=== PATIENT | female | born 1975 | race Caucasian/White ===

== ENCOUNTER 2021-09-05 13:13 | Emergency (ER) | payer BC, SELFPAY ==
[2021-09-05 13:21] VITALS: BP 132/74; PULSE 94; RESP 16; TEMP 37.2; O2SAT 100
--- NOTE | 2021-09-05 13:51 | ED.BACK ---
HPI - Back Pain/Injury General Chief Complaint: Back Pain/Injury Stated Complaint: back pain Time Seen by Provider: 09/05/21 13:52 Source: patient Mode of arrival: ambulatory Limitations: no limitations History of Present Illness HPI Narrative: Mildred Arshad is a 46 yo female with a PMH hypothyroid who [facility] with complaints of right-sided lower back pain. Denies any difficulty with urination or bowel movement but does have difficulty sitting down and has pain on movement too far forward or side to side Related Data Home Medications Medication Instructions Recorded Confirmed acetaminophen [Tylenol 8 Hour] 650 mg PO Q8H PRN 09/05/21 09/05/21 levothyroxine 125 mcg PO DAILY 09/05/21 09/05/21 Allergies Allergy/AdvReac Type Severity Reaction Status Date / Time Sulfa (Sulfonamide Allergy Unknown Rash Verified 09/05/21 13:33 Antibiotics) Review of Systems Review of Systems: CONSTITUTIONAL: Denies fever, chills, sweats. EYES: Denies visual changes, redness, discharge. ENT: Denies rhinorrhea, congestion, sore throat, otalgia. CARDIOVASCULAR: Denies chest pain, palpitations, edema. RESPIRATORY: Denies dyspnea, wheezing, cough GASTROINTESTINAL: Denies abdominal pain, nausea, vomiting, diarrhea. GENITOURINARY: Denies dysuria, hematuria, abnormal discharge SKIN: Denies rash or itching. NEUROLOGIC: Denies numbness, or focal weakness. PSYCHIATRIC: Denies anxiety or depression. Recent lower back pain PMFSH Past Medical History Medical History Back pain Hypothyroid Social History Social History (Updated 09/05/21 @ 14:01 by Joycelyn Camejo CNP) Smoking packs per day: 1.0 Smoking cigarettes per day: 20.0 Smoking status: Current every day smoker Alcohol intake: former Comments At time of signature, I agree with nursing past medical, surgical, social and family history. There is no relevant family history pertinent to the presenting complaint. Exam Narrative: GENERAL: This is a well-nourished, well-developed patient, in mmoderate distress. HEAD: normocephalic, atraumatic. EYES: Sclera clear/white. Vision is grossly intact. EARS: External ears normal,. Hearing grossly intact. NOSE: External nose normal without nasal discharge, THROAT: Mucous membranes moist, NECK: Neck supple, CARDIOVASCULAR: Regular rate and rhythm without murmurs, gallops, or rubs. RESPIRATORY: Clear to auscultation. Breath sounds equal bilaterally. No wheezes, GASTROINTESTINAL: Abdomen soft, SKIN: warm, intact NEURO: awake, alert, and oriented to person, place and time. There were no obvious focal neurologic abnormalities. Steady gait but walks gingerly with the right foot and is unable to bend forward more than 25 degrees EXTREMITIES: range of motion, limited ability to bend forward. BACK: Nontender , holds back rigidly y Course Course Emergency Course: Patient comes with back pain states that she gets chiropractor that is not currently available also states she has never tried muscle relaxants or steroids Patient given Toradol 60 mg IM here Patient started on Naprosyn and baclofen Follow-up with primary care doctor Vital Signs Vital signs: Vital Signs Temperature 98.9 F 09/05/21 13:21 Pulse Rate 94 09/05/21 13:21 Respiratory Rate 16 09/05/21 13:21 Blood Pressure 132/74 09/05/21 13:21 Pulse Oximetry 100 09/05/21 13:21 Temperature 98.9 F 09/05/21 13:21 Pulse Rate 94 09/05/21 13:21 Respiratory Rate 16 09/05/21 13:21 Blood Pressure 132/74 09/05/21 13:21 Pulse Oximetry 100 09/05/21 13:21 MDM - Back Pain/Injury Differential Diagnosis Differential diagnosis: Likely lumbar radiculopathy, sciatica, strain of lumbar region and other Critical Care Time Critical Care Time Critical Care Time: No Discharge Plan Discharge Clinical Impression: Lumbar back pain Patient Disposition: Home, Self-Care Conditi
[2021-09-05] MEDS: KETOROLAC (*BKC) 60 MG/2 ML VIAL IM (14:00)
== END 2021-09-05 14:20 | disposition home or self-care (01) ==
PROVIDERS: Emergency Provider Nurse Practitioner; PCP Family Medicine
DX: M54.50 Low back pain, unspecified (principal); F17.210 Nicotine dependence, cigarettes, uncomplicated; E03.9 Hypothyroidism, unspecified
CPT/HCPCS: 96372; 99213; G0463; J1885

== ENCOUNTER 2022-03-09 09:04 | Outpatient (CLI) | payer BC, SELFPAY ==
[2022-03-09 13:10] LABS: Free T4 Free Thyroxine 1.63 ng/mL (0.78-2.19)
[2022-03-09 13:24] LABS: Thyroid Stimulating Hormone 0.248 uIU/mL (0.465-4.680)
[2022-03-12 06:17] LABS: FSH 24.1 mIU/mL (***); LH 33.1 mIU/mL (***); Prolactin 10.1 ng/mL (***)
[2022-03-16 01:43] LABS: Estradiol, Ultrasensitive 183 pg/mL
== END 2022-03-09 09:05 | disposition home or self-care (01) ==
LOC: ANHWCLAB 09:07
PROVIDERS: PCP Family Medicine; Visit Provider Internal Medicine Endocrinology, Diabetes & Metabolism
DX: E03.9 Hypothyroidism, unspecified (principal); R79.89 Other specified abnormal findings of blood chemistry
CPT/HCPCS: 36415; 82670; 83001; 83002; 84146; 84439; 84443

== ENCOUNTER 2023-10-18 08:33 | Outpatient (CLI) | payer BC, SELFPAY ==
--- NOTE | 2023-10-18 08:44 | ECG_ITS ---
Measurements Intervals [place] Rate: 79 P: 74 DE: 134 QRS: 66 QRSD: 82 T: 127 QT: 392 QTc: 451 Interpretive Statements SINUS RHYTHM INCOMPLETE RIGHT BUNDLE BRANCH BLOCK BASELINE ARTIFACT- I, II, III, AVR, AVL, AVF, V1-V6 BORDERLINE ECG NO PREVIOUS ECG AVAILABLE FOR COMPARISON Electronically Signed On 10-18-2023 10:27:49 INDUSTRIAL ENGINEERING ANALYST by Ranjit Solorzano D.O.
== END 2023-10-18 08:34 | disposition home or self-care (01) ==
LOC: ANHSURGERY 08:38
PROVIDERS: PCP Family Medicine; Visit Provider Obstetrics & Gynecology
DX: Z01.818 Encounter for other preprocedural examination (principal); I45.10 Unspecified right bundle-branch block; R93.1 Abnormal findings on diagnostic imaging of heart and coronary circulation; Z87.891 Personal history of nicotine dependence
CPT/HCPCS: 93005

== ENCOUNTER 2023-10-25 03:36 | Day surgery (SDC) | payer BC, SELFPAY ==
[2023-10-12 12:30] VITALS: BMI 17.9
--- NOTE | 2023-10-12 12:34 | PC.NURSE ---
Report to the Outpatient Waiting Room, entrance under the green pavilion located off [facility], at time 6:30 on date 10/25/23. Planned Procedure Time: 8:30. Time changes happen often and if your time is changed the preop area will call you the afternoon before. - You and your visitor will be asked to self-screen and do not enter if you have any COVID symptoms. - A mask is optional within the hospital at this time. Patients may have clear liquids (water, carbonated beverages, clear teas, apple juice) until 3 hours prior to surgery with a maximum of 20 ounces. - No food from midnight until time of surgery Take the following medications with a SIP of water the morning of surgery: SYNTHROID DO NOT STOP ANY OF YOUR OTHER PRESCRIPTION MEDICATIONS PRIOR TO SURGERY ?EXCEPT THE FOLLOWING Medications to discontinue per physician: N/A Date to take last dose: N/A Please no make-up, nail equatorial guinean, hairspray, perfume, deodorant, or body powder the day of surgery. No jewelry (including any body piercings) or valuables the day of surgery, leave them at home. Please take a shower or bath the night before, or the morning of, surgery with an antibacterial soap. Wear comfortable, loose fitting clothing. - Jewelry must be removed prior to entering the operating room. Rings and piercings that are not removed may be cut off. - The hospital will not accept responsibility for valuables. - Please leave all valuables, including medications, at home the day of surgery. If you are going home after surgery, a licensed medical delivery driver must drive you home. - NO public transportation without another adult if you receive anesthesia. - We recommend that an adult stay with you for 24 hours following discharge. - We also recommend that you do not drive, make important decision, drink alcoholic beverages, or take any drugs that were not prescribed by your health care provider for at least 24 hours after your discharge time. Follow any additional instructions given to you from your surgeon. If you or anyone in your household have experienced Covid symptoms in the past week, please notify your surgeon or the nurse liaison at the phone number below for possible testing. Telephone instructions given to PT - ASHTYN PERKINS and asked if any additional questions and then verbalized understanding. Patient advised to call surgeon office or pre surgery nurse liaison [phone] if any additional questions.
[2023-10-25] VITALS (8 sets, daily range): BP systolic 97–120; BP diastolic 55–76; PULSE 55–66; RESP 13–18; TEMP 35.7–37.2; O2SAT 91–100
[2023-10-25] MEDS: ACETAMINOPHEN 500 MG TABLET 1000 MG PO (06:43)
[2023-10-25] MEDS: LACTATED RINGERS 1,000 ML 30 ML IV CONT ×2 (07:15→10:31)
--- NOTE | 2023-10-25 07:20 | WPDHPUPDATE1 ---
History and Physical Update Update Date/Time: 10/25/23 07:20 History and Physical has been reviewed, including an updated exam of the patient. There are NO changes in the patient's condition. Risks, benefits, and alternatives have been discussed and questions answered. Patient agrees to proceed with procedure.
[2023-10-25] MEDS: KETOROLAC 15 MG/ML VIAL (*BKC) IV PUSH (07:52)
--- NOTE | 2023-10-25 08:11 | WPDANESEPPF ---
Anes - Initial Pre Proc Eval Procedure: Operation Date: 10/25/23 08:30 Proposed Procedures p Hysteroscopy with Tatyana Endometrial Ablation - Hilario Veras MD s Laparoscopic Bilateral Salpingectomy - Hilario Veras MD Date/Time: 10/25/23 08:11 Surgeon: Hilario Veras MD Pre Op Diagnosis: Menorrhagia, Female Sterilization Patient Data Age: 48 Gender: F Height: 1.65 m Weight: 49.8 kg Last Vital Signs Temp 99 F 10/25/23 07:28 Pulse 65 10/25/23 07:28 Resp 16 10/25/23 07:28 BP 97/59 L 10/25/23 07:28 Pulse Ox 95 10/25/23 07:28 O2 Del Method Room Air 10/25/23 07:28 Allergies Allergy/AdvReac Type Severity Reaction Status Date / Time Sulfa (Sulfonamide Allergy Unknown Rash Verified 10/25/23 06:41 Antibiotics) latex Allergy Blister Verified 10/25/23 06:41 Home Medications Medication Instructions Recorded Confirmed Type levothyroxine 125 mcg tablet 125 mcg PO DAILY #90 tabs 01/17/23 10/12/23 Rx Patient hx anesthesia problems: none Family hx anesthesia problems: none Results Review: All pre-operative results and documents have been reviewed as part of the pre-operative evaluation. [facility] Past Medical History Medical History Back pain Hypothyroid Social History Social History Smoking packs per day: 1 Smoking cigarettes per day: 20.0 Years smoked: 30 Smoking pack-years: 30.00 Smoking status: Current every day smoker Tobacco type: cigarettes Second hand tobacco smoke exposure: Yes Alcohol intake: never Substance use: current Substance use type: marijuana Lack of Transportation: No Lack of Food: Never True Current Housing: I Have Housing Concerned About Future Housing: No Difficulty Paying Gas/Electric Bills: No Difficulty Paying for Meds: No Currently Unemployed: No Difficulty w/ Childcare or Family Care: No Living arrangements: with family Occupation/Education: unemployed Gender identity (if verbalized by the patient): Female Sexual Orientation (if Verbalized by the Patient): Straight or Heterosexual Spiritual care concerns: No Anes - Eval Final PreProcedure Day of Procedure 10/25/23 08:11 Patient weight: normal Heart: regular rate and rhythm Lungs: clear to auscultation Airway: Mallampati scale class II Neurological: alert and oriented Last oral intake: >/= 8 hours ASA classification: II Emergent: no Anesthetic plan: proceed Anesthesia type and monitoring: general ETT and standard monitoring Results Review: All pre-operative results and documents have been reviewed as part of the pre-operative evaluation. Informed Consent: The patient's anesthetic plan and its attendant risks and benefits were discussed with the patient/family/POA. Questions were solicited and answers provided to the satisfaction of the patient/family/POA.
--- NOTE | 2023-10-25 09:35 | P.OP_ITS ---
Procedure Note - Detailed Date of Procedure 10/25/23 Pre-op Diagnosis Menorrhagia, Female Sterilization Post-op Diagnosis Same Procedure Performed Laparoscopic bilateral salpingectomy with endometrial ablation and hysteroscopy. Surgeon Hilario Veras MD Anesthesia General Indications Menorrhagia, female sterilization Findings normal appearing endometrium, normal vulva, vagina, cervix. Normal pelvic anatomy with some omental adhesions to the anterior abdominal wall. Description of Procedure Patient was taken the operating room. She has prepped draped in the dorsal lithotomy position after induction of general anesthesia. A 5 mm abdominal incision was made in left upper quadrant of the abdomen with scalpel. A 5 mm trocars inserted the intra-abdominal cavity under direct visualization of the scope. Pneumoperitoneum was achieved. A 5 mm periumbilical incision was made using a scalpel on the abdominal scan. A 5 mm trocar was inserted the intra- abdominal cavity under visualization of the scope. A 5 mm incision made left lower quadrant of the abdomen. A 5 mm trocar was inserted the intra-abdominal cavity and direct visualization of the scope. The bilateral fallopian tubes were removed. The paratubal tissue in the area of the uterus was grasped with the LigaSure cautery and transected after being cauterized. The paratubal tissue from the ovary to the uterine cornu was cauterized and transected with LigaSure cautery. This was all done in a bilateral fashion. The tube was transected at the area of the uterine cornua and the tubes was removed through the 5 mm trocar site. The pneumoperitoneum was reduced. The trocars were removed. The skin was closed with subcuticular 4 Monocryl and covered with Dermabond. Our attention was then turned to the endometrial ablation portion of the procedure. A speculum was placed in the vagina. The cervix was grasped with a tenaculum. The cervix was dilated to approximately 8 mm with Kruse dilators. The hysteroscope was inserted. And the below findings were noted. All of the intrauterine surfaces were curettaged with a medium-size curette and the specimens were collected. Measurements of the cervix were taken using the uterine sound and the hysteroscope. The intrauterine cavity measurements were entered into the handpiece. The device was inserted into the intrauterine cavity and the array was expanded. The balloon cuff was inflated. When an adequate seal was formed the safety and energy cycles were initiated and completed. The array was collapsed, the balloon was deflated. The insert was withdrawn. The hysteroscope was reinserted and a well desiccated intrauterine cavity was observed. The patient was taken recovery room stable condition. Sponge lap and needle counts were correct x2. She tolerated the procedure well. Drains No Packing No Pathology None sent Complications No immediate complications Condition Stable Disposition PACU
[2023-10-25] MEDS: ONDANSETRON INJ 4 MG/2 ML VIAL IV PUSH (10:29)
== END 2023-10-25 11:15 | disposition home or self-care (01) ==
PROVIDERS: PCP Family Medicine; Visit Provider Obstetrics & Gynecology
PROC: 0U5B8ZZ Destruction of Endometrium, Via Natural or Artificial Opening Endoscopic (ICD-10-PCS; CPT 58563; principal; 2023-10-25 08:30)
PROC: (CPT 49320; 2023-10-25 08:30)
DX: N92.0 Excessive and frequent menstruation with regular cycle (principal); Z30.2 Encounter for sterilization; E03.9 Hypothyroidism, unspecified; F17.210 Nicotine dependence, cigarettes, uncomplicated; F12.90 Cannabis use, unspecified, uncomplicated
CPT/HCPCS: 58661; 58563; 88302; 88305; 93005; A9270; J1100; J1170; J1885; J2250; J2405; J2704; J3010; J7120

== ENCOUNTER 2024-09-10 11:40 | Emergency (ER) | payer BC, SELFPAY ==
--- NOTE | ~2024-09-10 | XR_ITS ---
EXAMINATION: XR chest 2V DATE: 09/10/2024 12:09 INDICATION: Cough. TECHNIQUE: Frontal and lateral views of the chest were obtained. COMPARISON: None. FINDINGS: There is mild scarring at right lung apex. There is no pneumonia, pleural effusion, or pneu mothorax. The heart size is normal. IMPRESSION: 1. Mild scarring at right lung apex. Reviewed, dictated and finalized at location A. ING AIDE TECHNICIAN
--- NOTE | 2024-09-10 11:47 | ED_ITS ---
HPI - URI/Sore Throat General Chief Complaint: Upper Respiratory Infection Stated Complaint: walking pneumonia exp, PATEL,Cough,Fever Time Seen by Provider: 09/10/24 11:54 Source: patient, RN notes reviewed and old records reviewed Mode of arrival: ambulatory Limitations: no limitations History of Present Illness HPI Narrative: 49-year-old female presents to the [facility] with concerns for pneumonia. States she has had exposure to pneumonia. Reports headaches and bodyaches Symptoms for about a week. Onset (ago): week(s) (1) Related Data Allergies Allergy/AdvReac Type Severity Reaction Status Date / Time latex Allergy Intermediate Blister Verified 09/10/24 11:58 Sulfa (Sulfonamide Allergy Intermediate Rash Verified 09/10/24 11:58 Antibiotics) Review of Systems Review of Systems: All systems reviewed & are unremarkable except as noted in HPI and below Constitutional: Constitutional: Reports as per HPI and Reports fever(s) (Subjective) ENT: Reports system reviewed and no additional complaints, except as documented Cardiovascular: Cardiovascular: Reports no additional cardiovascular complaints, Denies chest pain and Denies dyspnea Respiratory: Respiratory: Reports as per HPI, Denies chest congestion, Reports cough and Denies dyspnea Gastrointestinal: Gastrointestinal: Reports no additional gastrointestinal complaints, Denies abdominal pain, Denies nausea and Denies vomiting Musculoskeletal: Musculoskeletal: Reports no additional musculoskeletal complaints Integumentary/Breasts: Skin/Breast: Reports system reviewed and no additional complaints, except as docu PMFSH Past Medical History Medical History Back pain Gonadotroph adenoma Hypothyroid Nicotine dependence, cigarettes, uncomplicated Pathologic high serum prolactin Surgical History Surgical History History of endometrial ablation 10/2023 History of tubal ligation 10/2023 Social History Social History Smoking packs per day: 1 Smoking cigarettes per day: 20.0 Years smoked: 30 Smoking pack-years: 30.00 Smoking status: Current every day smoker Tobacco type: cigarettes Second hand tobacco smoke exposure: Yes Alcohol intake: never Substance use: current Substance use type: marijuana Lack of Transportation: No Lack of Food: Never True Current Housing: I Have Housing Concerned About Future Housing: No Difficulty Paying Gas/Electric Bills: No Difficulty Paying for Meds: No Currently Unemployed: No Difficulty w/ Childcare or Family Care: No Living arrangements: with family Occupation/Education: unemployed Gender identity (if verbalized by the patient): Female Sexual Orientation (if Verbalized by the Patient): Straight or Heterosexual Spiritual care concerns: No Comments At the time of my signature, I reviewed and agree with the nursing past medical, surgical, social, and family history. There is no relevant family history pertinent to the patient complaint. Exam Const: General: cooperative, healthy appearing, comfortable, no acute distress, well developed, alert and well nourished Nutritional Appearance: well nourished Orientation/consciousness: patient oriented x3 Limitations: no limitations HENMT: Head: normal to inspection Ears: hearing grossly normal bilaterally and external ears normal Face/Nose/Sinus: Normal external nose present, normal facial exam and face symmetric Face and sinus: normal facial exam and face symmetric Mouth: Yes Normal oral and palatal mucosa present, Yes lip normal and Yes tongue normal Throat: posterior oropharynx normal, uvula midline, postnasal drainage and no uvular edema Eyes: General: appearance normal, both eyes and all related structures Alignment and Position: alignment normal Periorbital: periorbital findings normal Neck: Neck: normal visual inspection, full ROM, no lymphadenopathy and no meningeal signs Chest: Chest palpation & inspection: normal inspection of the chest Resp: Effort & Inspection: normal respiratory effort and able to speak in complete sentences Auscultation: clear to auscultation bilaterally, no crackles, no rales, no rhonchi and no wheezes Cardio: Rate: regular rate Skin: General skin exam: normal color and no rashes or lesions noted Lesions: no lesions Rashes: no rashes Wounds: no wounds Neuro: General: patient oriented x3, gait normal, tone normal, moves all extremities and no meningeal signs Cognition (Neuro): normal cognition Speech: normal speech Gait exam (Neuro): Normal gait present Extrem: General: normal to inspection, full ROM, capillary refill normal and normal gait Psych: Appearance: grossly normal and well kempt Mental Status: mental status grossly normal Speech and movement: Normal speech and movement present and Clear speech present Affect: normal affect Attitude: cooperative Course Course Level of Care: Express Care Visit Vital Signs Vital signs: Vital Signs Temperature 99.3 F 09/10/24 11:54 Pulse Rate 77 09/10/24 11:54 Respiratory Rate 14 09/10/24 11:54 Blood Pressure 126/76 09/10/24 11:54 Pulse Oximetry 97 09/10/24 11:54 Oxygen Delivery Room Air 09/10/24 11:54 Temperature 99.3 F 09/10/24 11:54 Pulse Rate 77 09/10/24 11:54 Respiratory Rate 14 09/10/24 11:54 Blood Pressure 126/76 09/10/24 11:54 Pulse Oximetry 97 09/10/24 11:54 Oxygen Delivery Room Air 09/10/24 11:54 Reviewed MDM - URI/Sore Throat MDM Narrative Medical decision making narrative: Patient sitting exam. Toxic patient presents with, congestion Patient is nontoxic vitals are stable. Patient's chest x-ray negative Patient appropriate for outpatient treatment and follow-up Discharge instructions reviewed with patient, as well as provided in writing per nursing staff. The instructions also include specific and strict return/GO TO THE ER as well as f/u information. All questions have been answered, and the patient deny any further questions with discharge and discharge plan. Some parts of this dictation were generated by voice recognition software and may contain typographical and/or grammatical inaccuracies. Differential Diagnosis Differential diagnosis: Likely upper respiratory infection, otitis media, sinusitis, viral infection and bronchitis Imaging Data Radiologist's impression: EXAMINATION: XR chest 2V DATE: 09/10/2024 12:09 INDICATION: Cough. TECHNIQUE: Frontal and lateral views of the chest were obtained. COMPARISON: None. FINDINGS: There is mild scarring at right lung apex. There is no pneumonia, pleural effusion, or pneumothorax. The heart size is normal. IMPRESSION: 1. Mild scarring at right lung apex. Critical Care Time Critical Care Time Critical Care Time: No Discharge Plan Discharge Clinical Impression: Acute bronchitis Patient Disposition: Home, Self-Care Condition: Stable Instructions: Antibiotic Form, Acute Bronchitis (ED) Additional Instructions: Your chest x-ray did not show signs of pneumonia. Your symptoms are likely due to a viral illness, which is not treated with antibiotics. Typically viral infections last 7-10 days, can linger for couple of weeks. It is very important to treat your symptoms. Plenty of water, Gatorade, Pedialyte, ice pops or Jell-O. -Alternate Tylenol and Motrin per package directions for fever or pain. You can alternate every 4 hours -Antihistamine medication such as Benadryl at night and Zyrtec/Claritin/Fernanda during the day can help improve symptoms. -doing daily nasal irrigations can help relieve pressure your sinuses. Things like a Neti pot -Use Flonase twice a day for 5 days then daily to help reduce the inflammation and dry up your sinuses. -You can also use Mucinex. Be sure to drink plenty of water with this medication at least 8 ounces with every dose and it is important to drink 8 to 10 glasses of water per day. Water is a natural decongestant -Eat and drink things that are easy to swallow, like tea or soup, or popsicles. -Oral rinses such as: Salt water gargles and/or may use topical anesthetic (eg. Chloraseptic spray) or lozenges to relieve dryness or throat pain). -Frequent hand washing or hand accounting administrative assistant is one of the best ways to prevent spread of infection. -Using a vaporizer or humidifier at night will also help thin secretions and help with coughing up phlegm. -Follow up with primary care provider in 7-10 days if condition is not improving - For new or worsening symptoms go directly to the nearest ER Patient Language: Emirati Prescriptions: New prednisone 20 mg tablet See Rx Instructions .Route .COMPLEX Qty: 9 0RF Rx Instructions: Take 40 mg daily for 3 days, 20 mg daily for 3 days albuterol sulfate 90 mcg/actuation HFA aerosol inhaler 2 puff inhalation QID PRN (Reason: shortness of breath or wheezing) Qty: 6.7 0RF (DME) Aerochamber MV Spacer See Rx Instructions .Route Qty: 1 0RF Rx Instructions: As directed No Action levothyroxine 112 mcg tablet 112 mcg PO DAILY Qty: 90 1RF Follow-up/Referrals: Fernando Choi MD [Primary Care Provider] - 2 Weeks (express care follow up ) Stand Alone Forms: Work/School Release IP Time of Disposition: 12:25
[2024-09-10 11:54] VITALS: BP 126/76; PULSE 77; RESP 14; TEMP 37.4; O2SAT 97
== END 2024-09-10 12:31 | disposition home or self-care (01) ==
PROVIDERS: Emergency Provider Nurse Practitioner; PCP Family Medicine
DX: J20.9 Acute bronchitis, unspecified (principal); F17.210 Nicotine dependence, cigarettes, uncomplicated; E03.9 Hypothyroidism, unspecified
CPT/HCPCS: 71046; 99213; G0463

== ENCOUNTER 2024-10-24 00:41 | Day surgery (SDC) | payer BC, SELFPAY ==
[2024-10-01 14:17] VITALS: BMI 17.4
[2024-10-24 06:25] VITALS: BP 98/83; PULSE 96; RESP 18; TEMP 36.3; O2SAT 98
[2024-10-24] MEDS: LACTATED RINGERS 1,000 ML 150 ML IV CONT (06:36)
[2024-10-24 06:41] LABS: BEDSIDEPREGUCG Negative (Negative)
--- NOTE | 2024-10-24 07:12 | PM.IMHP ---
H&P: HPI History of Present Illness Date/Time: 10/24/24 07:12 Chief Complaint: History of colon polyps Narrative: The patient has a history of colonic polyps, the last colonoscopy was about 10 years ago. She is asymptomatic and has no family history of colon cancer. Review of Systems Review of Systems: All systems reviewed & are unremarkable except as noted in HPI and below PMFSH Past Medical History Medical History Back pain Gonadotroph adenoma Hypothyroid Nicotine dependence, cigarettes, uncomplicated Pathologic high serum prolactin Surgical History Surgical History History of endometrial ablation 10/2023 History of tubal ligation 10/2023 Social History Social History Smoking packs per day: 1 Smoking cigarettes per day: 20.0 Years smoked: 30 Smoking pack-years: 30.00 Smoking status: Current every day smoker Tobacco type: cigarettes Second hand tobacco smoke exposure: Yes Alcohol intake: never Substance use: current Substance use type: marijuana Lack of Transportation: No Lack of Food: Never True Current Housing: I Have Housing Concerned About Future Housing: No Difficulty Paying Gas/Electric Bills: No Difficulty Paying for Meds: No Currently Unemployed: No Difficulty w/ Childcare or Family Care: No Living arrangements: with family Occupation/Education: unemployed Gender identity (if verbalized by the patient): Female Sexual Orientation (if Verbalized by the Patient): Straight or Heterosexual Spiritual care concerns: No Meds Home Medications and Allergies Home Medications ?Medication ?Instructions ?Recorded ?Confirmed ?Type levothyroxine 112 mcg tablet 112 mcg PO DAILY #90 tabs 08/15/24 10/24/24 Rx inhalational spacing device #1 ea 09/10/24 Rx (Aerochamber MV spacer) Allergies Allergy/AdvReac Type Severity Reaction Status Date / Time latex Allergy Intermediate Blister Verified 10/24/24 06:21 Sulfa (Sulfonamide Allergy Intermediate Swelling Verified 10/24/24 06:21 Antibiotics) Vital Signs Vital Signs - 24 hr 10/24/24 06:25 Temperature 97.4 F L Pulse Rate 96 Respiratory Rate 18 Blood Pressure 98/83 L Pulse Oximetry 98 Oxygen Delivery Room Air Exam Const: General: cooperative and healthy appearing Resp: Effort & Inspection: normal respiratory effort and able to speak in complete sentences Auscultation: clear to auscultation bilaterally Cardio: Rate: regular rate Rhythm: regular rhythm GI: Inspection: normal to inspection GI Palp: No No hepatosplenomegaly present Auscultation: normal bowel sounds Rectal Exam: deferred Skin: General skin exam: normal color Psych: Appearance: grossly normal Mental Status: mental status grossly normal Assessment and Plan Assessment and plan (1) History of colonic polyps: Code(s): Z86.0100 - Personal history of colon polyps, unspecified Status: Acute Assessment and Plan: The patient is deemed a good candidate for the procedure. Consent signed. Will proceed.
--- NOTE | 2024-10-24 07:24 | P.PNAN_ITS ---
Anes - Initial Pre Proc Eval Procedure: Operation Date: 10/24/24 07:30 Proposed Procedures p Screening Colonoscopy - Avinash Quintero MD Date/Time: 10/24/24 07:24 Surgeon: Avinash Quintero MD Pre Op Diagnosis: Screening neoplasm of colon Patient Data Age: 49 Gender: F Height: 1.63 m Weight: 47.2 kg Last Vital Signs Temp 36.3 C L 10/24/24 06:25 Pulse 96 10/24/24 06:25 Resp 18 10/24/24 06:25 BP 98/83 L 10/24/24 06:25 Pulse Ox 98 10/24/24 06:25 O2 Del Method Room Air 10/24/24 06:25 Allergies Allergy/AdvReac Type Severity Reaction Status Date / Time latex Allergy Intermediate Blister Verified 10/24/24 06:21 Sulfa (Sulfonamide Allergy Intermediate Swelling Verified 10/24/24 06:21 Antibiotics) Home Medications ?Medication ?Instructions ?Recorded ?Confirmed ?Type levothyroxine 112 mcg tablet 112 mcg PO DAILY #90 tabs 08/15/24 10/24/24 Rx inhalational spacing device #1 ea 09/10/24 Rx (Aerochamber MV spacer) Laboratory Tests 10/24/24 06:39 POC Urine HCG, Qual Negative (Negative) Patient hx anesthesia problems: none Family hx anesthesia problems: none Results Review: All pre-operative results and documents have been reviewed as part of the pre- operative evaluation. [facility] Past Medical History Medical History Nicotine dependence, cigarettes, uncomplicated Pathologic high serum prolactin Gonadotroph adenoma Back pain Hypothyroid Surgical History Surgical History History of tubal ligation 10/2023 History of endometrial ablation 10/2023 Social History Social History Smoking packs per day: 1 Smoking cigarettes per day: 20.0 Years smoked: 30 Smoking pack-years: 30.00 Smoking status: Current every day smoker Tobacco type: cigarettes Second hand tobacco smoke exposure: Yes Alcohol intake: never Substance use: current Substance use type: marijuana Lack of Transportation: No Lack of Food: Never True Current Housing: I Have Housing Concerned About Future Housing: No Difficulty Paying Gas/Electric Bills: No Difficulty Paying for Meds: No Currently Unemployed: No Difficulty w/ Childcare or Family Care: No Living arrangements: with family Occupation/Education: unemployed Gender identity (if verbalized by the patient): Female Sexual Orientation (if Verbalized by the Patient): Straight or Heterosexual Spiritual care concerns: No Anes - Eval Final PreProcedure Day of Procedure 10/24/24 07:24 Patient weight: thin Heart: regular rate and rhythm Lungs: clear to auscultation Airway: Mallampati scale class 1 Neurological: alert and oriented Last oral intake: >/= 8 hours ASA classification: II Emergent: no Anesthetic plan: proceed Anesthesia type and monitoring: general GIVS and standard monitoring Results Review: All pre-operative results and documents have been reviewed as part of the pre- operative evaluation. Informed Consent: The patient's anesthetic plan and its attendant risks and benefits were discussed with the patient/family/POA. Questions were solicited and answers provided to the satisfaction of the patient/family/POA.
[2024-10-24 08:11] VITALS: BP 95/59; PULSE 55; RESP 20; O2SAT 100
[2024-10-24 08:21] VITALS: BP 96/68; PULSE 72; RESP 18; O2SAT 98
[2024-10-24 08:31] VITALS: BP 109/72; PULSE 66; RESP 18; O2SAT 98
== END 2024-10-24 09:04 | disposition home or self-care (01) ==
PROVIDERS: Anesthesiology; PCP Family Medicine; Visit Provider Internal Medicine Gastroenterology
PROC: 0DJD8ZZ Inspection of Lower Intestinal Tract, Via Natural or Artificial Opening Endoscopic (ICD-10-PCS; CPT 45378; principal; 2024-10-24 07:30)
DX: Z12.11 Encounter for screening for malignant neoplasm of colon (principal); D12.2 Benign neoplasm of ascending colon; D12.4 Benign neoplasm of descending colon; K63.5 Polyp of colon; K57.30 Diverticulosis of large intestine without perforation or abscess without bleeding; E03.9 Hypothyroidism, unspecified; F17.210 Nicotine dependence, cigarettes, uncomplicated; Z79.51 Long term (current) use of inhaled steroids; Z98.890 Other specified postprocedural states; Z98.891 History of uterine scar from previous surgery; Z98.51 Tubal ligation status; Z86.018 Personal history of other benign neoplasm
CPT/HCPCS: 45385; 88305; J2003; J2371; J2704; J7120

== ENCOUNTER 2025-03-18 10:40 | Emergency (ER) | payer BC, SELFPAY ==
--- NOTE | ~2025-03-18 | XR_ITS ---
XR abdomen/kub 1V 03/18/2025 11:12 INDICATION: Generalized abdominal pain TECHNIQUE: KUB COMPARISON: None FINDINGS: Bowel gas pattern is normal. There is no evidence of free air, mass, organomegaly, ascites or obstruction. No abnormal calculi are seen. The bones appear intact. There are pelvic phleboliths. IMPRESSION: 1: No acute abdominal abnormality identified. Reviewed, dictated and finalized at location A.
--- NOTE | 2025-03-18 10:42 | ED.ABDPAIN ---
HPI - Abdominal Pain General Chief Complaint: Urogenital-Female Stated Complaint: Abdominal Pain Time Seen by Provider: 03/18/25 10:41 Source: patient Mode of arrival: ambulatory Limitations: no limitations History of Present Illness HPI narrative: Mildred is a 50-year-old female patient presenting to the clinic today with complaints of abdominal pain x3 days. 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 Some severe abdominal pain in the lower abdomen on with some nausea and vomiting. Pain comes and goes. Pain is sharp in nature. Reports pain was 10 at 10 last night but currently is a 5/10. Denies any urinary symptoms, vaginal discharge, or blood in her stool. Thought initially she may be constipated so she took a couple doses of laxatives and stool softeners. Was able to pass stool a few times but is still having pain. Is now having pain in the upper abdomen is well. Feels bloated. States her temperature has increased to 99.4? F. History of tubal ligation, uterine ablation, pancreatitis, and cholecystectomy. Had colonoscopy be in October 2024 and had several polyps and diverticulosis. Denies any concern for STIs. Related Data Allergies Allergy/AdvReac Type Severity Reaction Status Date / Time latex Allergy Intermediate Blister Verified 03/18/25 10:42 Sulfa (Sulfonamide Allergy Intermediate Swelling Verified 03/18/25 10:42 Antibiotics) metronidazole AdvReac Intermediate Vomiting Verified 03/18/25 10:42 Review of Systems Review of Systems: Pertinent positives per HPI. Patient denies any fever, chills, rash, headache, visual changes, dizziness, cough, shortness of breath, chest pain, palpitations, diarrhea, or any urinary issues. [facility] Past Medical History Medical History Nicotine dependence, cigarettes, uncomplicated Pathologic high serum prolactin Gonadotroph adenoma Back pain Hypothyroid Surgical History Surgical History History of tubal ligation 10/2023 History of endometrial ablation 10/2023 Social History Social History Smoking packs per day: 1 Smoking cigarettes per day: 20.0 Years smoked: 30 Smoking pack-years: 30.00 Smoking status: Current every day smoker Tobacco type: cigarettes Second hand tobacco smoke exposure: Yes Alcohol intake: never Substance use: current Substance use type: marijuana Other substance usage details: Multiple times daily marijuana Lack of Transportation: No Lack of Food: Never True Current Housing: I Have Housing Concerned About Future Housing: No Difficulty Paying Gas/Electric Bills: No Difficulty Paying for Meds: No Currently Unemployed: No Difficulty w/ Childcare or Family Care: No Living arrangements: with family Occupation/Education: unemployed Gender identity (if verbalized by the patient): Female Sexual Orientation (if Verbalized by the Patient): Straight or Heterosexual Spiritual care concerns: No Comments At the time of my signature, I reviewed and agree with the nursing past medical, surgical, social, and family history. There is no relevant family history pertinent to the patient complaint. Exam Narrative: General: Well-developed, well nourished, in no apparent distress. Head: Normocephalic, atraumatic. Cardio: Regular rate and rhythm, s1 and s2 normal, no murmur appreciated. Resp: Clear to auscultation bilaterally, no rhonchi, rales, wheezing or rubs. Abdomen: Soft, pliable, bowel sounds present in all quadrants, generalized tender to palpation but worst in the right and left lower abdomen, + psoas in the RLQ, no organomegly, no CVAT tenderness. Course Course Emergency Course: Portions of this record may have been created with voice recognition software. Level of Care: Express Care Visit Vital Signs Vital signs: Vital Signs Temperature 37.4 C 03/18/25 10:50 Pulse Rate 95 03/18/25 10:50 Respiratory Rate 16 03/18/25 10:50 Blood Pressure 102/63 03/18/25 10:50 Pulse Oximetry 100 03/18/25 10:50 Oxygen Delivery Room Air 03/18/25 10:50 Temperature 37.4 C 03/18/25 10:50 Pulse Rate 95 03/18/25 10:50 Respiratory Rate 16 03/18/25 10:50 Blood Pressure 102/63 03/18/25 10:50 Pulse Oximetry 100 03/18/25 10:50 Oxygen Delivery Room Air 03/18/25 10:50 Vital signs reviewed Transfer Transfered to: [facility] Transportation: Other (Private car) Transfer rationale: Abdominal pain-rule out appy, pancreatitis, diverticulitis, ovarian cyst Accepting physician: Stanley Transfer comments: Via private car. MDM - Abdominal Pain MDM Narrative Medical decision making narrative: At the time of visit patient is resting comfortably on the exam table. Patient appears to be nontoxic. Labs: Urinalysis and bedside test was performed. Urinalysis shows 1+ protein and trace of intact blood. Bedside test was negative. Diagnostics: KUB x-ray shows no acute abnormality the abdomen Plan: Patient is having generalized abdominal pain-worsen they bilateral lower quadrants- history of diverticulosis and pancreatitis. Patient still has her appendix. Recommend transfer to the ER for further evaluation. Patient agrees to transfer. Patient would like to go to [facility] the emergency room. Report called to Debbie-physician's architectural administrative assistant [facility] emergency room and she accepts patient for transfer. Differential Diagnosis Differential diagnosis: Likely abdominal pain, acute appendicitis, calculus of kidney, constipation, diverticulitis, endometriosis, gastroenteritis, pancreatitis, small bowel obstruction and other (Ovarian cyst) Lab Data Labs: Lab Results 03/18/25 Range/Units 11:00 POC Urine Color Rosaura POC Urine Clarity Cloudy POC Urine pH 5.5 POC Ur Specif [place] 1.025 POC Urine Protein 1+ (Negative) POC Ur Glucose (UA) Negative (Negative) POC Urine Ketones Negative (Negative) POC Urine Blood Trace (Negative) POC Urine Nitrite Negative (Negative) POC Urine Bilirubin Negative (Negative) POC Urine Urobilinogen 0.2 POC U Leukocyte Esteras Negative (Negative) POC Urine HCG, Qual Negative (Negative) Imaging Data Radiologist's impression: ITS Impressions Abdomen X-Ray 03/18/25 11:21 IMPRESSION: 1: No acute abdominal abnormality identified. Discharge Plan Discharge Clinical Impression: Abdominal pain Qualifiers: Abdominal location: generalized Qualified Code(s): R10.84 - Generalized abdominal pain Patient Disposition: Acute Care Hospital Condition: Stable Patient Language: [place] Prescriptions: No Action levothyroxine 112 mcg tablet 112 mcg PO DAILY Qty: 90 1RF Follow-up/Referrals: Feranndo Choi MD [Primary Care Provider] - Time of Disposition: 11:55 Quality NIHSS Nursing Documentation ED NIHSS nursing documentation: reviewed/agree
[2025-03-18 10:50] VITALS: BP 102/63; PULSE 95; RESP 16; TEMP 37.4; O2SAT 100
[2025-03-18 11:17] LABS: BEDSIDEPREGUCG Negative (Negative); EDUAAPPEAR Cloudy; EDUABILI Negative (Negative); EDUABLOOD Trace (Negative); EDUACOLOR1 Amber; EDUAGLUCOSE Negative (Negative); EDUAKETONE Negative (Negative); EDUALEUKO Negative (Negative); EDUANITRATE Negative (Negative); EDUAPH 5.5; EDUAPROTEIN 1+ (Negative); EDUASPGRAVITY 1.025; EDUAUROBILI 0.2
== END 2025-03-18 11:55 | disposition short-term general hospital (02) ==
PROVIDERS: Emergency Provider Nurse Practitioner Family; PCP Family Medicine
DX: R10.84 Generalized abdominal pain (principal); F17.210 Nicotine dependence, cigarettes, uncomplicated; F12.90 Cannabis use, unspecified, uncomplicated; E03.9 Hypothyroidism, unspecified
CPT/HCPCS: 74018; 81003; 81025; 99213; G0463

== ENCOUNTER 2025-03-18 12:15 | Emergency (ER) | payer BC, SELFPAY ==
--- NOTE | ~2025-03-18 | CT_ITS ---
EXAMINATION: CT abdomen pelvis w con DATE: 03/18/2025 13:29 INDICATION: Bilateral lower quadrant abdominal pain. TECHNIQUE: Computed tomography (CT) of the abdomen and pelvis was performed with 100 mL Omnipaque-350 intravenous contrast. Automated exposure control and iterative reconstruction technique were employe d. The dose-length product was 182.60 mGy-cm. COMPARISON: None FINDINGS: Lung bases are clear. Visualized inferior heart is normal. No pericardial or pleural effusion. Cholec ystectomy clips at the gallbladder fossa. Liver, spleen, pancreas, bilateral adrenal glands and right kidney are normal. Small region of cortical scarring at the interpolar region of the left kidney. Bl adder is decompressed. Anteverted uterus and right adnexa is unremarkable. 2 cm left ovarian cyst/fol licle. Normal appendix. No bowel obstruction. There is fluid scattered throughout the colon consisten t with nonspecific diarrhea. No free intraperitoneal gas or fluid. No pathologically enlarged abdomin al or pelvic lymphadenopathy. Moderate spondylosis the lumbosacral junction. IMPRESSION: 1. Fluid throughout the colon consistent with nonspecific diarrhea. Correlate clinically for gastroen teritis. Reviewed, dictated and finalized at location A. IMPRESSION: 1. Fluid throughout the colon consistent with nonspecific diarrhea. Correlate c linically for gastroenteritis.
--- OUTSIDE RECORDS SUMMARY | 2025-03-18 12:19 | XMS_ITS | Clinical Summary ---
Author Organization [facility] Address [address] [place] [id number] Care Team Providers Care Job Forwarder Name Role Phone Fernando Choi MD Primary Care Provider [phone] Allergies Active Allergy Reactions Criticality Noted Date Comments Sulfa (Sulfonamide Antibiotics) Swelling,Rash Medium 0 03/27/2018 Medications levothyroxine (SYNTHROID, LEVOTHROID) 175 mcg tablet Active Active Problems Problem Noted Date Diagnosed Date Tobacco use 09/29/2019 Decreased exercise tolerance 09/29/2019 Chest discomfort 09/26/2019 Abnormal mammogram 03/30/2018 Mastodynia of right breast 03/30/2018 Surgical History Surgery Date Site/Laterality Comments GALLBLADDER SURGERY Medical History Medical History Date Comments Hypothyroidism Family History Medical History Relation Name Comments Atrial fibrillation Maternal Grandfather Lung cancer Maternal Grandmother COPD Mother Relation Name Status Comments Brother 1 Alive Brother 2 Alive Father Alive Maternal Grandfather Alive Maternal Grandmother Mother Alive Social History Tobacco Use Types Packs/Day Years Used Date Smoking Tobacco: Every Day Smokeless Tobacco: Never Tobacco Cessation:Ready to Q uit: No; Counseling Given: Yes Alcohol Use Standard Drinks/Week Comments Not Currently 0 (1 standard drink = 0.6 oz pur e alcohol) Personal Safety Answer Date Recorded Getting School Help Needed Not on file 12/10 Comments No Sex and Gender Information Value Date Recorded Sex Assigned at Not on file 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 Gender Identity Not on file Sexual Orientation Not on file Obstetrics History Last Filed Vital Signs Vital Sign Reading Time Taken Comments Blood Pressure 104/70 09/26/2019 3:08 PM ICE HOUSE SUPER[employer]OR Pulse 70 09/26/2019 3:08 PM [employer] HOUSE SUPERVISOR Temperature - - Respiratory Rate - - Oxygen Saturation 97% 09/26/2019 3:08 PM [employer] HOUSE SUPERVISOR Inhaled Oxygen Concentration - - Weight 53.2 kg (117 lb 4.8 oz) 09/26/2019 3:08 P M [employer] HOUSE SUPERVISOR Height 163.8 cm (5' 4.5) 09/26/2019 3:08 PM ICE HOUSE SUPERVISOR Body Mass Index 19.82 09/26/2019 3:08 PM ICE HOUSE SUPERVISOR Plan of Treatment Not on file Insurance ANTHEM ACCESS CHOICE ANTHEM ACCESS ANTHEM ACCESS CHOICE ANTHEM ACCESS Care Teams Job Forwarder Relationship Specialty Start Date End Date Fernando Choi MD [address] [place] [id number] PCP - General 10/06/17
--- OUTSIDE RECORDS SUMMARY | 2025-03-18 12:19 | XMS_ITS | Referral Summary ---
Author Organization [facility] Address [address] [place] [id number] Care Team Providers Care Relay Tester Helper Name Role Phone Fernando Choi MD Primary Care Provider [phone] Allergies Active Allergy Reactions Criticality Noted Date Comments Sulfa (Sulfonamide Antibiotics) Swelling,Rash Medium 0 03/27/2018 Medications levothyroxine (SYNTHROID, LEVOTHROID) 175 mcg tablet Active Active Problems Problem Noted Date Diagnosed Date Tobacco use 09/29/2019 Decreased exercise tolerance 09/29/2019 Chest discomfort 09/26/2019 Abnormal mammogram 03/30/2018 Mastodynia of right breast 03/30/2018 Social History Tobacco Use Types Packs/Day Years [...] on file 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 Gender Identity Not on file Sexual Orientation Not on file Last Filed Vital Signs Vital Sign Reading Time Taken Comments Blood Pressure 104/70 09/26/2019 3:08 PM DIRECTOR OF FINANCIAL AID Pulse 70 09/26/2019 3:08 PM DIRECTOR OF FINANCIAL AID Temperature - - Respiratory Rate - - Oxygen Saturation 97% 09/26/2019 3:08 PM DIRECTOR OF FINANCIAL AID Inhaled Oxygen Concentration - - Weight 53.2 kg (117 lb 4.8 oz) 09/26/2019 3:08 P M DIRECTOR OF FINANCIAL AID Height 163.8 cm (5' 4.5) 09/26/2019 3:08 PM DIRECTOR OF FINANCIAL AID Body Mass Index 19.82 09/26/2019 3:08 PM DIRECTOR OF FINANCIAL AID Plan of Treatment Not on file Insurance ANTHEM ACCESS CHOICE ANTHEM ACCESS ANTHEM ACCESS CHOICE ANTHEM ACCESS Care Teams Relay Tester Helper Relationship Specialty Start Date End Date Fernando Choi MD [address] [place] [id number] PCP - General 10/06/17
--- OUTSIDE RECORDS SUMMARY | 2025-03-18 12:19 | XMS_ITS | Data Portability ---
Author Organization [facility] Address [address] [place] [address] Care Team Providers Care Matrix Worker Name Role Phone MISAEL NEAL Primary Care Provider [phone] Assessment Encounter Date Assessment Date Assessment LastModified by Organization Details LastModified Time 01/17/2024 01/17/2024 Annual gynecological exam performed. Patient will come back in a year unless there are new symptoms. Not available 01/17/2024 10:36:30 Plan of Treatment Reminders Order Date Submit Date Provider Last Modified By Organization Details Last Modified Time Details Appointments None recorded. Lab urinalysis, dipstick 2024 025 [facility], [address], [address], [place], [address], 5 11:45:06 hsv-1 igg Ab, serum 2023 024 [facility] (Lab), [address], [place], [address], 4 08:37:39 hsv-2 igg Ab, serum 2023 024 [facility] (Lab), [address], [place], [address], 4 08:37:40 Referral None recorded. Procedures None recorded. Surgeries salpingecto my, laparoscopi c (SURG) 2022 024 [id number], [address], [place], [address], 3 13:17:36 hysteroscop y, with endometrial ablation (SURG) 2022 024 [facility], [address], [place], [address], 4 11:07:13 Imaging MAMMO, screening, bilateral 2023 024 [email or web address] [facility], [address], [facility] [address], [place], [address], 4 13:49:12 Medication Orders fluconazole 150 mg tablet 2024 025 [id number], [address] , [place], [place], [id number], 5 12:37:00 nystatin-tr iamcinolone 100,000 unit/gram-0 .1 % topical ointment 2024 025 [id number], [address] , [place], [place], [id number], 5 12:39:23 Patient TargetsNo targets recorded. Patient InstructionsNo instructions recorded. Reason for Referral None Reported. 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 -No evide nce of sacha michaeli maritza or janice schuster . -[facility] Michelle by Sandro Charles MD on 09/26 at 11:56 AM ----- ----- ----- ----- ----- ----- ----- ----- ----- ----- ----- ----- ----- ----- ----- ----- ----- ---- CLINI JUAN C INFOR MATIO N: n93.9 MICRO SCOPI C DESCR IPTIO N: A micro scopi c exami natio n was perfo rmed. GROSS DESCR IPTIO N: A. Endom etriu m. The speci men is label ed with the patie nt's name, ese reeves cs and EMB . Recei chandni in forma ana is a 3.0 x 3.0 x 0.5 cm aggre gate of soft, dark red tissu e. The entir e speci men is submi tted in 2 casse ttes. Gross ed by Henrik dickerson Not Available [facility] (Lab) [address] [place], [address], 09/26/2023 13:01:11 01/17/2001/17/2024 HERPE S SMPLE X VIRUS TYPE 1 SPECI FIC AB, IGG herpes simplex virus 1 IgG Positi ve negati ve abnormal Not Available [facility] (Lab) [address] [place], [address], 01/18/2024 08:37:39 01/17/2001/17/2024 HERPE S SMPLE X VIRUS TYPE 1 SPECI FIC AB, IGG herpes simplex virus 1 IgG, quant 8.0 ai 0.0-0. 8 high Not Available [facility] (Lab) [address], [place], [address], 01/18/2024 08:37:39 01/17/20 24 01/17/2024 HERPE S SIMPL EX VIRUS TYPE 2 SPECI FIC AB, IGG herpes simplex virus 2 IgG Negati ve negati ve Not Available [facility] (Lab) [address] [facility], [place], [address], 01/18/2024 08:37:40 01/17/20 24 01/17/2024 HERPE S SIMPL EX VIRUS TYPE 2 SPECI FIC AB, IGG herpes simples virus 2 IgG, quant <0.2 ai 0.0-0. 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 Shima javier d by Josie Uribe, CT on 024 at 10:07 AM ----- ----- ----- ----- ----- ----- ----- ----- ----- ----- ----- ----- ----- ----- ----- ----- ----- ---- HPV RESUL TS: HPV mRNA E6/E7 : No HPV mRNA Detec laney NOTE: This high risk HPV mRNA assay detec ts fourt een high- risk HPV types (16, 18, 31, 33, 35, 39, 45, 51, 52, 56, 58, 59, 66, 68) witho ut diffe renti ation . COMME NT: This speci men was revie wed by a Cytot echno logis t and/o r Patho logis t (as indic ated in this repor t) after evalu ation using the Thinp rep Imagi ng Syste m. CLINI JUAN C INFOR MATIO N: Menst rual Statu s: LMP (if appli cable ): 08/06 Clini juan c Histo ry/Pr eviou s Pap: Type of Neopl augie (if appli cable ): Signi fican t Clini juan c Findi ngs: Other Histo ry: Hormo angel (if appli cable ): PAP EDUCA BARBARA L NOTE: The Pap Test is a scree julito test with an inher ent false negat jumana rate. Liqui d-bas ed sampl ing may decre ase, but will not elimi debora, false negat jumana resul ts. A negat jumana resul t does not precl ude the prese nce and/o r devel opmen t of disea se, since the prese nce of abnor mal cells in the sampl e depen ds on the locat ion of the lesio n and sampl ing techn ique. Danita nued regul ar scree julito is the best metho d of cance r preve ntion . If repor laney cytol ogic findi ng do not corre late with physi juan c and/o r histo rical findi ngs, furth er inves tigat ion is recom shelley d, as clini tanna springer nted. Not Available [facility] (Lab) [address], [place], [address], 01/19/2024 11:12:33 12/04/19 25 12/04/2024 CULTU RE: URINE result report SEE RESULT S BELOW Test: Cultu re: Urine Speci men Sourc e: Urine - Clean Catch Speci men Type: Urine Speci men Date: 2024 1202 Resul t Date: 2024 1952 Resul t Statu s: Final resul t Abnor mal: No Resul ting Lab: [facility] [address] [facility] [address] Tel: CULTU RE ----- ----- ----- --- No growt h in 1 day (dete ction level of 10,00 0 colon ies / ml.) Not Available [facility] (Lab) [address] [place], [address], 12/05/2024 20:55:48 12/04/19 25 12/04/2024 WOMEN 'S HEALT H SWAB, BRANDAN samson species, tma Positi ve negati ve abnormal Not Available [facility] (Lab) [address] [place], [address], 12/09/2024 23:55:05 12/04/19 25 12/04/2024 WOMEN 'S HEALT H SWAB, BRANDAN samson glabrata, tma Positi ve negati ve abnormal Not Available [facility] (Lab) [address] [place], [address], 12/09/2024 23:55:05 12/04/19 25 12/04/2024 WOMEN 'S HEALT H SWAB, BRANDAN trichomonas vaginalis, tma Negati ve negati ve This assay tests for and diffe renti ates shade en Liza da glabr monica, the Liza da speci es group (C. albic ans, C. tropi calis , C. parap alee is, C. dubli corazon is), and Trich omona s vagin fang by Trans cript ion-M ediat ed Ampli ficat ion (TMA) . Not Available [facility] (Lab) [address] [place], [address], 12/09/2024 23:55:05 12/04/19 25 12/04/2024 WOMEN 'S HEALT H SWAB, BRANDAN bacterial vaginosis (bv), tma Positi ve negati ve abnormal This test detec ts ribos omal RNA from bacte merlin assoc iated with bacte rial vagin osis (BV), inclu ding Lacto bacil mark (L. gasse ri, L. crisp atus and L. jense maricel), Gardn erell a vagin fang, and Atopo bium vagin ae by Trans cript ion-M ediat ed Ampli ficat ion (TMA) . A singl e quali tativ e resul t is repor laney based on instr ument softw are to deter mine BV posit jumana or negat jumana statu s. Not Available [facility] (Lab) [address], [place], [address], 12/09/2024 23:55:05 12/04/19 25 12/04/2024 urina lysis , dipst ick Leukocytes Not Available [facility] [address], [place], [address], 12/04/2024 12:35:36 12/04/19 25 12/04/2024 urina lysis , dipst ick Nitrite Not Available [facility] [address], [place], [address], 12/04/2024 12:35:36 12/04/19 25 12/04/2024 urina lysis , dipst ick Urobilinogen Not Available [facility] [address], [place], [address], 12/04/2024 12:35:36 12/04/19 25 12/04/2024 urina lysis , dipst ick Protein Not Available [facility] [address], [place], [address], 12/04/2024 12:35:36 12/04/19 25 12/04/2024 urina lysis , dipst ick pH Not Available [facility] [address], [place], [address], 12/04/2024 12:35:36 12/04/19 25 12/04/2024 urina lysis , dipst ick Blood Not Available [facility] [address], [place], [address], 12/04/2024 12:35:36 12/04/19 25 12/04/2024 urina lysis , dipst ick Specific Herman Not Available [facility] ric [address], [place], [address], 12/04/2024 12:35:36 12/04/19 25 12/04/2024 urina lysis , dipst ick Ketone Not Available [facility] [address], [place], [address], 12/04/2024 12:35:36 12/04/19 25 12/04/2024 urina lysis , dipst ick Bilirubin Not Available [facility] [address], [place], [address], 12/04/2024 12:35:36 12/04/19 25 12/04/2024 urina lysis , dipst ick Glucose Not Available [facility] [address], [place], [address], 12/04/2024 12:35:36 12/04/19 25 12/04/2024 urina lysis , dipst ick Appearance Not Available [facility] [address], [place], [address], 12/04/2024 12:35:36 12/04/19 25 12/04/2024 urina lysis , dipst ick Color Not Available [facility] [address], [place], [address], 12/04/2024 12:35:36 12/04/19 25 12/04/2024 urina lysis , dipst ick Leukocytes trace Not Available [facility] t[facility] [address], [place], [address], 12/04/2024 12:33:10 12/04/19 25 12/04/2024 urina lysis , dipst ick Nitrite neg Not Available [facility] [address], [place], [address], 12/04/2024 12:33:10 12/04/19 25 12/04/2024 urina lysis , dipst ick Urobilinogen neg Not Available [facility] saloni [address], [place], [address], 12/04/2024 12:33:10 12/04/19 25 12/04/2024 urina lysis , dipst ick Protein pos Not Available [facility] [address], [place], [address], 12/04/2024 12:33:10 12/04/19 25 12/04/2024 urina lysis , dipst ick pH 6 Not Available [facility] [address], [place], [address], 12/04/2024 12:33:10 12/04/19 25 12/04/2024 urina lysis , dipst ick Blood + Not Available [facility] [address], [place], [address], 12/04/2024 12:33:10 12/04/19 25 12/04/2024 urina lysis , dipst ick Specific Herman 1.010 Not Available [facility] [address], [place], [address], 12/04/2024 12:33:10 12/04/19 25 12/04/2024 urina lysis , dipst ick Ketone neg Not Available [facility] [address], [place], [address], 12/04/2024 12:33:10 12/04/19 25 12/04/2024 urina lysis , dipst ick Bilirubin neg Not Available [facility] [address], [place], [address], 12/04/2024 12:33:10 12/04/19 25 12/04/2024 urina lysis , dipst ick Glucose neg Not Available [facility] [address], [place], [address], 12/04/2024 12:33:10 12/04/19 25 12/04/2024 urina lysis , dipst ick Appearance light Not Available [facility] [address], [place], [address], 12/04/2024 12:33:10 12/04/19 25 12/04/2024 urina lysis , dipst ick Color yellow Not Available [facility] [address], [place], [address], 12/04/2024 12:33:10 09/22/20 23 09/22/2023 , pelvi s No observ ation record ed. [facility] [address], [place], [address], 09/22/2023 11:33:45 09/22/20 23 09/22/2023 , trans vagin al No observ ation record ed. [facility] [address], [place], [address], 09/22/2023 11:34:04 09/22/20 23 09/22/2023 US, pelvi s No observ ation record ed. [email or web address] [facility] [address], [place], [address], 09/28/2023 15:40:51 Result Notes None recorded. Problems Name Problem SNOMED Code Status Onset Date Resolution Date Notes Provider Name and Address Organization Details Recorded Time Screenin g for malignan t neoplasm of cervix Completed 201001/12/2021 Screenin g for malignan t neoplasm s of the cervix;R ecorded Elsewher e: No Locat ion: [facility] S ource: EHR Ferry Captain rhea: N Practi ce ID: 0001 Carlos lable Time: 11:15:00 AM Mabel Machuca [facility] 14:48:34 Adult health examinat ion Completed 201401/12/2021 ROUTINE MEDICAL EXAM;Rec orded Elsewher e: No Locat ion: [facility] S ource: EHR Ferry Captain rhea: N Venancioti ce ID: 0001 Carlos lable Time: 11:00:00 AM Mabel Machuca [facility] 14:48:[address] Concept Completed 201601/12/2021 Encntr for general adult medical exam w/o abnormal findings ;Recorde d Elsewher e: No Locat ion: [facility] S ource: EHR Ferry Captain rhea: N Venancioti ce ID: 0001 Carlos lable Time: 01:00:00 [facility] 14:48:37 Screenin g for malignan t neoplasm of rectum Completed 201601/12/2021 Encounte r for screenin g for malignan t neoplasm of rectum;R ecorded Elsewher e: No Locat ion: [facility] S ource: EHR Ferry Captain rhea: N Practi ce ID: 0001 Carlos lable Time: 01:00:00 PM [facility] 14:48:36 Family planning surveill ance Completed 201201/12/2021 Contrace ptive surveill ance, unspecif ied;Donell rded Elsewher e: No Locat ion: [facility] S ource: EHR Ferry Captain rhea: N Practi ce ID: 0001 Carlos lable Time: 11:15:00 AM Mabel steele [facility] 14:48:32 Speciali zed medical examinat ion Completed 201401/12/2021 Gynecolo gical Examinat ion;Donell rded Elsewher e: No Locat ion: [facility] S ource: EHR Ferry Captain rhea: N Venancioti ce ID: 0001 Carlos lable Time: 11:00:00 AM Mabel steele, [facility] 14:48:40 Cytologi c finding [id number] Completed 201101/12/2021 Papanico laou smear of cervix with low grade squamous intraepi thelial lesion (LGSIL); Recorded Elsewher e: No Locat ion: [facility] S ource: EHR Ferry Captain rhea: N Venancioti ce ID: 0001 Carlos lable Time: 11:30:00 AM Mabel steele, [facility] 14:48:28 Abnormal cervical Papanico laou smear [id number] Completed 201101/12/2021 Other abnormal papanico laou smear of cervix and cervical HPV;Donell rded Elsewher e: No Locat ion: [facility] S ource: EHR Ferry Captain rhea: N Venancioti ce ID: 0001 Carlos lable Time: 11:30:00 AM Mabel steele [facility] 14:48:22 Dysfunct ional uterine bleeding Completed 201201/12/2021 Other disorder s of menstrua tion and other abnormal bleeding from female genital tract;Re corded Elsewher e: No Locat ion: [facility] S ource: EHR Ferry Captain rhea: N Practi ce ID: 0001 Carlos lable Time: 10:15:00 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 Ferry Captain rhea: N Venancioti ce ID: 0001 Carlos lable Time: 01:00:00 PM Mabel steele [facility] 14:48:39 Atypical squamous cells of undeterm ined signific ance on cervical Papanico laou smear [id number] Completed 201001/12/2021 Pap Abnormal ASCUS;Pr actice ID: 0001 [facility] 14:48:25 Pregnanc y test negative [id number] Completed 201001/12/2021 Negative Pregnanc y Test;Pra ctice ID: 0001 [facility] 14:48:33 Evaluati on finding [id number] Completed 201601/12/2021 Oth abn and inconclu sive findings on dx imaging of breast;R ecorded Elsewher e: No Locat ion: [facility] S ource: EHR Ferry Captain rhea: N Penny ce ID: 0001 Carlos lable Time: 09:22:16 AM Mabel steele [facility] 14:48:27 Problem Notes None recorded. Procedures Surgical History Date Name Laterality Status Provider Name and Address Organization Details Recorded Time 025 Date of Last Colonoscopy completed DENISE Bal [facility] 12/04/2024 12:17:56 025 colonoscopy completed DENISE Bal [facility] 12/04/2024 12:17:37 024 Date of Last Pap Smear completed DENISE Bal [facility] 12/04/2024 12:16:07 024 HYSTEROSCOPY, WITH ENDOMETRIAL ABLATION (SURG) completed Linda Hou [facility] 11/01/2023 23:06:02 023 Endometrial Biopsy completed Salma Luciano [facility] [address], [place], [address], [facility] 09/23/2023 13:03:24 023 endometrial biopsy completed Angela Qureshi [facility] 09/27/2023 10:00:27 021 Date of Last Mammogram completed Terra Dawn [facility] 01/17/2024 10:39:23 021 Endometrial Biopsy completed Salma Luciano [facility] [address], [place], [address], [facility] 05/26/2021 10:30:02 021 endometrial biopsy completed Angela Qureshi [facility] 09/27/2023 10:00:32 008 Colonoscopy completed Mabel Machuca [facility] 01/12/2021 15:50:08 008 Urinary reflex study completed Angela Qureshi [facility] 09/27/2023 15:21:34 992 Cholecystectomy completed Terra Dawn [facility] 09/23/2023 12:32:39 Imaging Results None recorded. Procedure Notes None recorded. Medical Equipment None Reported. Allergies Allergen ID Allergen Name Allergen Category Reaction Reaction Severity Criticality Documentation Date Start Date Code Code System Note Provider Name and Address Organization Details Recorded Time 1070 Substance with sulfonami de structure and antibacte rial mechanism of action (substanc e) medicatio n Not available Not available Not available 04/07/2020 59995 8003 SNYUSRA Marcum null, [facility] 0 10:06:44 80641 metronida zole medicatio n Not available Not available Not available 12/20/2024 6922 RxNorm Анна Catherine, NP [address], [place], [address] , [facility] 5 13:37:26 Medications Name Sig Start Date Stop Date Status Note LastModified by Organization Details LastModified Time fluconazo le 150 mg tablet TAKE 1 TABLET BY MOUTH NOW active Not Available Not Available No t Available Synthroid 125 mcg tablet Take 1 tablet every day by oral route. 12/04 completed Not Available Not Available Not Available prednison e 20 mg tablet TAKE 2 TABLETS BY MOUTH DAILY FOR 3 DAYS THEN TAKE 1 TABLET BY MOUTH DAILY FOR 3 DAYS active Not Available Not Available No t Available Synthroid 100 mcg tablet 01/12 completed Not Available Not Available Not Available metronida zole 500 mg tablet TAKE 1 TABLET BY MOUTH EVERY 12 HOURS FOR 7 DAYS active Not Available Not Available No t Available nystatin- triamcino lone 100,000 unit/gram -0.1 % topical ointment APPLY TOPICALL Y TO THE AFFECTED AREA TWICE DAILY FOR 5 DAYS active Not Available Not Available No t Available Levoxyl 25 mcg tablet 01/13 completed Not Available Not Available Not Available oxycodone -acetamin ophen 5 mg-325 mg tablet TAKE 1 TABLET BY MOUTH EVERY 4 HOURS NEEDED FOR PAIN 01/16 completed Not Available Not Available Not Available Metrogel Vaginal 0.75 % (37.5 mg/5 gram) 01/13 completed Not Available Not Available Not Available meclizine 25 mg tablet active Not Available Not Available Not Available clindamyc in 2 % vaginal cream Insert 1 applicat orful every day by vaginal route at bedtime for 7 days. active Not Available Not Available No t Available Valtrex 500 mg tablet 01/13 completed Not Available Not Available Not Available Synthroid 112 mcg tablet active Not Available Not Available Not Available norethind edwar acetate 5 mg tablet TAKE 1 TABLET BY MOUTH EVERY DAY DIRECTED 01/16 completed Not Available Not Available Not Available albuterol sulfate HFA 90 mcg/actua tion aerosol inhaler INHALE 2 PUFFS BY MOUTH FOUR TIMES DAILY NEEDED FOR SHORTNES S OF BREATH OR WHEEZING 12/04 completed Not Available Not Available Not Available Terazol 7 0.4 % vaginal cream insert 1 applicat orful by vaginal route every day for 7 days at bedtime 07/08 completed Prescrib ed Nahomiher e: No Locat ion: Antoinette alcantara [facility] M odify By: cmedical Encount er DateTime : 07/02/20 13 10:20:42 AM Not Available Not Available Not Available amoxicill in 875 mg-potass ium clavulana te 125 mg tablet TAKE 1 TABLET BY MOUTH EVERY 12 HOURS FOR 10 DAYS 01/12 completed Not Available Not Available Not Available levothyro xine 01/13 completed Not Available Not Available Not Available Aleve 220 mg capsule Take 1 capsule every 12 hours by oral route. active Not Available Not Available No t Available OptiChamb er [facility] with Large Mask USE DIRECTED DAILY active Not Available Not Available No t Available clindamyc in 1 %-benzoyl peroxide 5 % topical gel with pump APPLY PEA SIZED AMOUNT TOPICALL Y TO FACE DAILY IN THE MORNING active Not Available Not Available No t Available Vitals Date Recorded Body height Body mass index (BMI) Body weight Systolic blood pressure Diastolic blood pressure Provider Name and Address Organization Details Last Updated DateTime 11/01/2023 165.1 cm 18.1 kg/m2 63523.57 g 110 mm[Hg] 68 mm[Hg] Lucinda Nelda [facility] 4 10:52:41 Date Recorded Body height Body mass index (BMI) Body weight Systolic blood pressure Diastolic blood pressure Provider Name and Address Organization Details Last Updated DateTime 12/04/2024 165.1 cm 19.1 kg/m2 99298.12 g 101 mm[Hg] 65 mm[Hg] DENISE Bal [facility] 5 12:15:09 Date Recorded Body height Body mass index (BMI) Body weight Systolic blood pressure Diastolic blood pressure Provider Name and Address Organization Details Last Updated DateTime 01/17/2024 165.1 cm 18.8 kg/m2 92064.94 g 108 mm[Hg] 72 mm[Hg] Terra López [facility] 4 10:36:51 Date Recorded Body height Body mass index (BMI) Body weight Systolic blood pressure Diastolic blood pressure Provider Name and Address Organization Details Last Updated DateTime 09/27/2023 165.1 cm 18.3 kg/m2 80195.16 g 105 mm[Hg] 71 mm[Hg] Angela Qureshi [facility] 3 15:18:44 Social History Question Answer Notes LastModified by Organizat ion Details LastModified Time Tobacco Smoking Status Current Every Day Smoker Cesia Jacob ivette, [facility] 11/01/2023 10:42:33 Do You Have An Advance Directive? No [email or web address] Information not available 01/13/2021 Are You Blind Or Do You Have Difficulty Seeing? No [email or web address] Information not available 01/13/2021 What Is Your Level Of Caffeine Consumption? Occasional Information not available 09/21/2023 How Much Tobacco Do You Chew? None [email or web address] Information not available 01/13/2021 In The 14 Days Before Symptom Onset, Have You Had Close Contact With A Laboratory-confir med COVID-19 While That Case Was Ill? No [email or web address] Information not available 01/13/2021 In The 14 Days Before Symptom Onset, Have You Had Close Contact With A Person Who Is Under Investigation For COVID-19 While That Person Was Ill? No Information not available 01/13/2021 Have You Been To An Area Known To Be High Risk For COVID-19? No [email or web address] Information not available 01/13/2021 Are You Deaf Or Do You Have Serious Difficulty Hearing? No [email or web address] Information not available 01/13/2021 What Type Of Diet Are You Following? REGULAR [email or web address] Information not available 01/13/2021 What Is The Highest Grade Or Level Of School You Have Completed Or The Highest Degree You Have Received? SR95218-1 [email or web address] Information not available 01/13/2021 Do You Use Protection During Sex? No [email or web address] Information not available 01/13/2021 Do You Use Your Seat Belt Or Car Seat Routinely? Yes [email or web address] Information not available 01/13/2021 Do You Have Smoke And Carbon Monoxide Detectors In Your Home? Yes Information not available 01/13/2021 At What Age Did You Start Smoking Tobacco? 14 [email or web address] Information not available 01/13/2021 How Much Tobacco Do You Smoke? 1 PPD [email or web address] Information not available 01/13/2021 Do You Use Sunscreen Routinely? No [email or web address] Information not available 05/26/2021 How Many Years Have You Smoked Tobacco? 30+ [email or web address] Information not available 01/13/2021 Have You Used IV Drugs? No [email or web address] Information not available 01/13/2021 Do You Have Difficulty Walking Or Climbing Stairs? No [email or web address] Information not available 11/01/2023 Sex: Unknown Functional Status Question Answer Note LastModified by Organizat ion Details LastModified Time Do you use any illicit or recreational drugs? No [email or web address] Information not available 01/13/2021 What is your level of alcohol consumption? None [email or web address] Information not available 01/13/2021 Are you able to walk? YESWOREST [email or web address] Information not available 01/13/2021 Are you able to care for yourself? Yes [email or web address] Information n ot available 11/01/2023 What is your occupation? None [email or web address] Information not available 01/13/2021 Do you have difficulty dressing or bathing? No [email or web address] Information not available 11/01/2023 What is your exercise level? Moderate [email or web address] Information not available 01/13/2021 Mental Status Question Answer Note LastModified by Organization D etails LastModified Time Do you feel stressed (tense, restless, nervous, or anxious, or unable to sleep at night)? [id number] Information not available 01/13/2021 Family History Relationship Description Onset Age of this Age Resolved Age Notes LastModified by Organization Details LastModified Time Maternal Aunt Carcinoma in situ of breast [email or web address] Not available 11/17 12:05:19 Maternal Aunt Diabetes mellitus [email or web address] Not available 2019 10:09:56 Sister Carcinoma in situ of breast [email or web address] Not available 11/17 12:05:19 Maternal Grandmother Carcinoma in situ of lung [email or web address] Not available 0 12/04/2024 12:05:19 Maternal Grandmother Asthma [email or web address] Not available 2019 10:08:09 Mother Asthma [email or web address] Not available 10:08:09 Brother Asthma [email or web address] Not available 0 04/07/2020 10:08:09 Maternal Grandfather Diabetes mellitus [email or web address] Not available 2019 10:09:56 Medical History Condition Response Allergies (Food, seasonal, environmental ) N Other N Breast Cancer N Drug/Latex Allergies/Reactions Y Blood Transfusion N Dermatologic Disorders N Lung Disease N Defects or Inherited Disease N Breast Problem N Gestational Diabetes N Hematologic disorders N Anesthesia Complications N History of STI Y Deep Vein Thrombosis N Polycystic ovary syndrome N Anxiety Disorder N Autoimmune disease N Arthritis N Infertility N Polyps N Acid Reflux (GERD) N History of abnormal pap Y Cancer N Stroke N Varicosities N Neurologic/Epilepsy N Endometriosis N High Cholesterol N Headaches N Fibromyalgia N Kidney Disease N Heart Problems N Kidney or Bladder Problems Y Thyroid Problems Y GI Problems N Eating Disorder N Anemia N Art (IVF or FET) N Psychiatric Illness N Ovarian Cancer N Diabetes N Pulmonary (TB, Asthma) N Hepatitis/Liver Disease N No Past Medical History N Eczema N Urinary Tract Infection N Abuse/Domestic Violence N Asthma N Trauma/Violence N Depression/ depression N Heart Disease N Pre-Eclampsia N Hypertension N Osteoporosis N Thrombophilias N Gynecological History Statement/Question Response Abnormal Pap Y Flow Moderate Date of Last Mammogram 08/30/2021 Date of LMP 08/06/2023 N On BCP's at Conception? N STIs/STDs Yes Was last menstrual period normal N HPV Vaccine N Duration of Flow (days) 60 Current Control Method Sterilizati on Age at First Child 16 Are cycles usually normal N Date of Last Colonoscopy 10/24/2024 Sexually Active? Y Menses Monthly Y Date of DEXA bone scan Age of first menstrual cycle 13 Date of Last Pap Smear 01/17/2024 Sexual Problems? N LMP Approximate N Obstetrics History GPAL:G 3 P 3 0 0 3 Type Value Full Term 3 Living 3 Total 3 Past Encounters Encounter ID Performer Location Encounter Start Date Encounter Closed Date Diagnosis/Indication Diagnosis SNOMED-CT Code Diagnosis ICD10 Code Diagnosis Note [id number] Salma Luciano , [facility] [address],[place] [address] 04/07/2020 10:00:32 04/07/2020 10:34:19 Gynecologic examination 89257961 Z01.419 Suggested Calcium with Vitamin D 1200-1500m g daily. Patient advised to get an annual flu shot in the fall and she could obtain at [facility] or [facility] clinic. Also to obtain TDap vaccinatio n if you have not had one in the last 10 years. Recommend yearly mammograms . Encouraged monthly self breast exams. Encourage safe sexual practices, to use condoms and limit partners if not already in a monogamous relationsh ip. Engage in daily exercise of low impact aerobic exercise 45-60 minutes 4-5 times weekly. Avoid tobacco and illicit drugs as well as using moderation with alcohol intake less than 1-2 8 oz beverages daily. This lifestyle behavior pattern will lead to less health conditions and longer life span. If BMI greater than 25 weight watchers or dietary consult advised. All questions have been answered. Patient appears to understand informatio n, but if you have any questions please call or respond to this email. [id number] [facility] [address],[place] [address] 01/13/2021 09:27:48 01/14/2021 10:49:45 Abnormal uterine bleeding [id number] 9100 N93.9 Pt has a history of abnormal bleeding when her thyroid is off. Will start with labs and u/s. At this point her bleeding is light. Will await results and determine plan. [id number] Kevyn Veras MD [facility] [address],[place] [address] 01/19/2021 14:29:25 01/19/2021 15:56:01 Abnormal uterine bleeding [id number] 9100 N93.9 [id number] Salma Luciano , [facility] [address],[place] [address] 04/30/2021 10:27:18 04/30/2021 11:04:00 Gynecologic examination [id number] Z01.419 Suggested Calcium with Vitamin D 1200-1500m g daily. Patient advised to get an annual flu shot in the fall and she could obtain at [facility] or [facility] care clinic. Also to obtain TDap vaccinatio n if you have not had one in the last 10 years. Recommend yearly mammograms . Encouraged monthly self breast exams. Encourage safe sexual practices, to use condoms and limit partners if not already in a monogamous relationsh ip. Engage in daily exercise of low impact aerobic exercise 45-60 minutes 4-5 times weekly. Avoid tobacco and illicit drugs as well as using moderation with alcohol intake less than 1-2 8 oz beverages daily. This lifestyle behavior pattern will lead to less health conditions and longer life span. If BMI greater than 25 weight watchers or dietary consult advised. All questions have been answered. Patient appears to understand informatio n, but if you have any questions please call or respond to this email. Pap/hpv hx wnlLast pap/hpv 2020 wnlPap/hpv q3-5yrs per asccp unless otherwise indicatedD ecline std screen Abnormal u terine bleeding [id number] 9100 N93.9 TVUS 01/2021 wnlHx hypothyroi dismLikely need EMBx but we agreed to update a few other labs & we will call to confirm EMBx is required.D iscussed Endo ablation/I UD/Progest erone only options; as well as reasons for AUB including perimenopa use/fibroi ds/polyps etc.She will consider these options. Screening mammography 24 827599 Z12.31 [id number] Salma Luciano [facility] [address],[place] [address] 05/26/2021 09:57:19 05/26/2021 10:46:43 Screening procedure 93296236 Z13.9 Abnormal u terine bleeding 1001634736 9100 N93.9 R/P TSH levels EMBx performed todayWill call with results & next steps in plan of care.See procedure note. [id number] Salma Luciano [facility] [address],[place] [address] 09/21/2023 14:29:20 09/22/2023 13:41:09 Abnormal uterine bleeding [id number] 9100 N93.9 The patient and I discussed the various causes of abnormal uterine bleeding, including polyps, fibroids, hyperplasi a, atypia, anovulatio n, etc. We reviewed the typical evaluation with labs, pelvic US and possible endometria l biopsy. Briefly discussed the options available for treatment (depending on the results of evaluation ) such as hormonal treatment (OCPs, progestins ), Mirena, endometria l ablation, and surgery. We spent more than 30 minutes face to face. We will start with US and then determine next steps.Last EMBx was wnl [id number] Kevyn Veras MD [place] [address],[place] [address] 09/22/2023 10:27:22 09/22/2023 11:16:11 Abnormal uterine bleeding [id number] 9100 N93.9 [id number] Salma Luciano [facility] [address] [address] 09/23/2023 12:21:40 09/23/2023 13:10:34 Abnormal uterine bleeding [id number] 9100 N93.9 Here today for US review and upate EMBx (see procedure notes); and lab work.I have recommende d a consult with Dr. Ean Veras for AUB/menorr hagia that has returned this past year and is greatly affecting her quality of life. We briefly discussed IUD as another option to manage this; but she would like to hear surgical options as well before she makes her final decision. We updatd her EMBx/labs to complete the work up.PCP has updated other routine labs & can have those faxed into our office.Off ered norethindr one to thin bleeding while we await consult. Time spent in visit is a total of 20 mins with at least 50% of visit consisting of counseling and review of plan of care NOT including the time spent on EMBx procedure. Cyst of ovary 43133979 N 83.209 [id number] Kevyn Veras MD [place] [address],[facility] [place] [address] 09/27/2023 14:42:32 09/27/2023 15:47:49 Menorrhagia 603393514 N92.0 Female sterilization 608 94412 Z30.2 This patient is a 48-year-ol d female presents for heavy vaginal bleeding. She has longstandi ng very heavy bleeding. Her menses are regular. However, they require double protection . Patient has accidents, getting blood on her bedding and clothing. Is affected work. She changes a pad or tampon every hour. She leaks blood around the pad and tampon. This bleeding has a profound impact on her quality of life and her activities of daily living.we discussed treatment options in detail. We discussed all the medical treatment options. She is limited by her smoking habit. Talked about procedures . She has anovulator y bleeding. TXA is not an option. She also has a endometria l polyp. We agreed to resection of endometria l polyp and endometria l ablation. We will move forward with that. We will obtain authorizat ion and she completed the informed consent process today. She understand s the risk. The patient understand s the procedure. The procedure was described to the patient in great detail. the patient also understand s the risks. The risks were also explained in detail. She understand s that injuries May occur during surgery. She understand s these injuries can result in hospitaliz ation, more surgery, and severe illness. She understand s there is risk of hemorrhage and infection. We spent 40 minutes face-to-fa ce. More than 50% was counseling . We made a decision to perform surgery. [id number] Kevyn Veras MD [place] [address],[place] [address] 11/01/2023 06:37:46 11/01/2023 06:39:07 [id number] Kevyn Veras MD [place] [address] [address] 11/01/2023 10:42:19 11/01/2023 11:17:16 Menorrhagia 175850662 N92.0 48-year-ol d female who presents for follow-up on menorrhagi a. She had laparoscop ic bilateral salpingect lydia and endometria l ablation. She is recovering normally. Her incisions are clean dry and intact. She is no complaints , no problems, other than the watery vaginal discharge this routine for ablation. She denies any nausea, vomiting, fever, chills. She denies any foul-smell ing vaginal discharge. [id number] [facility] [address] [address] 01/17/2024 10:08:16 01/17/2024 11:14:25 Gynecologic examination 10964242 Z01.419 Suggested Calcium with Vitamin D 1200-1500m g daily. Patient advised to get an annual flu shot in the fall and she could obtain at [facility] or [facility] care clinic. Also to obtain TDap vaccinatio n if you have not had one in the last 10 years. Recommend yearly mammograms . Encouraged monthly self breast exams. Encourage safe sexual practices, to use condoms and limit partners if not already in a monogamous relationsh ip. Engage in daily exercise of low impact aerobic exercise 45-60 minutes 4-5 times weekly. Avoid tobacco and illicit drugs as well as using moderation with alcohol intake less than 1-2 8 oz beverages daily. This lifestyle behavior pattern will lead to less health conditions and longer life span. If BMI greater than 25 weight watchers or dietary consult advised. All questions have been answered. Patient appears to understand informatio n, but if you have any questions please call or respond to this email. Pap/hpv sentSTD Screen-wan ts HSV onlyGeneti c Screen discussedC olon Screen PCPDexa Screen naRoutine Labs pcp Sexually t ransmitted infectious disease 0468022 A64 Screening mammography 24 099524 Z12.31 [id number] MAURA Paidlla [place] [address] [address] 12/04/2024 12:05:05 12/05/2024 15:57:07 Vaginitis 32061226 N76.0 vaginitis panel senturine cx sentSTI screen declinedrx sent for yeast - r/b/a reviewedvu lvar care guidelines discussedq uestions answered Time spent in visit is a total of 25 mins with at least 50% of visit consisting of counseling and review of plan of care. Vulval irritation 223257 003 N90.89 Health Concerns Section Related Observation LastModified by Organization Detai ls LastModified Time None Recorded Concern Status LastModified by Organization Details LastModified Time None Recorded Advance Directives Directive N: Payers Encounter Date Sequence Insurance Name Policy Number Policy Cuellar Covered Member ID Cuellar Member ID Guarantor Name 09/27/2023 1 [employer] [id number] Morris Arshad [id number] ROMAIN Rivera Arshad 10/25/2023 1 [employer] [id number] Morris Adan Arshad [id number] ROMAIN Mildred Miguel Arshad 11/01/2023 1 [employer] [id number] Morris Adan Arshad [id number] ROMAIN Mildred J Arshad 01/17/2024 1 [place] [id number] Morris Adan Arshad [id number] BS Mildred J Arshad 12/04/2024 1 [place] [id number] Morris Adan Arshad [id number] ROMAIN Mildred J Arshad Notes Date Note Type Note Provider Name and Address Organization Details Recorded Time 09/27/2023 text/html This patient is a 48-year-old female presents for heavy vaginal bleeding. She has longstanding very heavy bleeding. Her menses are regular. However, they require double protection. Patient has accidents, getting blood on her bedding and clothing. Is affected work. She changes a pad or tampon every hour. She leaks blood around the pad and tampon. This bleeding has a profound impact on her quality of life and her activities of daily living.we discussed treatment options in detail. We discussed all the medical treatment options. She is limited by her smoking habit. Talked about procedures. She has anovulatory bleeding. TXA is not an option. She also has a endometrial polyp. We agreed to resection of endometrial polyp and endometrial ablation. We will move forward with that. We will obtain authorization and she completed the informed consent process today. She understands the risk. The patient understands the procedure. The procedure was described to the patient in great detail. the patient also understands the risks. The risks were also explained in detail. She understands that injuries May occur during surgery. She understands these injuries can result in hospitalization, more surgery, and severe illness. She understands there is risk of hemorrhage and infection. Kevyn Veras MD [address], [place], [address], [facility] 10/25/2023 08:19:14 11/01/2023 text/html 48-year-old fema tico who presents for follow-up on menorrhagia. She had laparoscopic bilateral salpingectomy and endometrial ablation. She is recovering normally. Her incisions are clean dry and intact. She is no complaints, no problems, other than the watery vaginal discharge this routine for ablation. She denies any nausea, vomiting, fever, chills. She denies any foul-smelling vaginal discharge. Kevyn Veras MD [address], [place], [address], [facility] 11/01/2023 11:14:06 01/17/2024 text/html Annual GYNReport ed bypatient.Menstrual cycle:Normal menses (amenorrheic since endo ablation) Urinary symptoms:No hematuria; No incontinence Vulva:No genital lesion Vagina:Normal vaginal discharge Breast:No breast pain; No breast lump; No nipple discharge Current Contraception:Satisf ied with current contraception; Tubal ligation Sexual complaints:No sexual complaints; No pain during intercourse; Normal libido Menopausal Symptoms:No menopausal symptoms; Normal vaginal lubrication Psychological symptoms:No depression; No anxiety; No PMDD Preventive measures:Encourage self breast examination; Encourage regular exercise; Encourage no tobacco use; Encourage regular mammograms starting age 40; Followed with yearly pap smears; Needs to schedule mammogram; Up to date on colonoscopy screening MAURA De La Cruz- [address], [place], [address], [facility] 01/17/2024 11:13:59 12/04/2024 text/html 49yopresents for evaluation of vaginal irritation and pelvic painnotice bilateral lower pelvic pain last week that has since resolvedvulvar itching/irritationSA with steady male partnerh/o BS, endometrial ablation neg d/c, odorsneg urinary symptomsneg n/v/fneg flu-like symptoms MAURA Padilla [address], [place], [address], [facility] 12/05/2024 10:27:17 OBGyn Episode Ob Episode Information Episode Created Date Number of Fetuses Patient Bloodtype Patient rh Status Prepregnancy Weight lbs Domestic Partner Domestic Partner Phone Father Name Laundry Helper Status 04/07/20 20 1 CLOSED Fetus Data First Name Last Name Admitted to NICU Weight (g) Sex Living Outcome Pediatric Complications Fetus ID Race Codes Race Delivery Type 2381.35 8 F Full Term 2432 Vaginal Delivery Kirk Calculation Initial Kirk Date Initial Exam Date Initial Exam Provider Initial Ultrasound Date Last Menstrual Period Date Ultra Sound Weeks Gestation 0 Eighteen To Twenty Week Kirk Update Ultra Sound Date Fundal Height At Umbil Quickening Date Ultra Sound Latest Weeks Gestation Final Kirk Confirmed By Final Kirk Confirmed Date Final Kirk Date Ultra Sound Latest Days Gestation 0 0 Menstrual History Last Menstrual Date Menses Monthly On Bcp Conception Prior Menses Frequency Hcg Plus Date Menarche Onset Age Delivery Information Delivery Date Delivery Type Labor Anesthesia Weeks Gestation Incision Type Labor Labor Length Hrs Delivered By Post Complications Tubal Sterilization Discharge Date Comments 0 37 Discharge Information Feeding Method Contraceptive Method Maternal HG B and HCT Levels Ob Episode Information Episode Created Date Number of Fetuses Patient Bloodtype Patient rh Status Prepregnancy Weight lbs Domestic Partner Domestic Partner Phone Father Name Laundry Helper Status 04/07/20 20 1 CLOSED Fetus Data First Name Last Name Admitted to NICU Weight (g) Sex Living Outcome Pediatric Complications Fetus ID Race Codes Race Delivery Type 2551.45 5 M Full Term 2433 Vaginal Delivery Kirk Calculation Initial Kirk Date Initial Exam Date Initial Exam Provider Initial Ultrasound Date Last Menstrual Period Date Ultra Sound Weeks Gestation 0 Eighteen To Twenty Week Kirk Update Ultra Sound Date Fundal Height At Umbil Quickening Date Ultra Sound Latest Weeks Gestation Final Kirk Confirmed By Final Kirk Confirmed Date Final Kirk Date Ultra Sound Latest Days Gestation 0 0 Menstrual History Last Menstrual Date Menses Monthly On Bcp Conception Prior Menses Frequency Hcg Plus Date Menarche Onset Age Delivery Information Delivery Date Delivery Type Labor Anesthesia Weeks Gestation Incision Type Labor Labor Length Hrs Delivered By Post Complications Tubal Sterilization Discharge Date Comments 5 40 Discharge Information Feeding Method Contraceptive Method Maternal HG B and HCT Levels Ob Episode Information Episode Created Date Number of Fetuses Patient Bloodtype Patient rh Status Prepregnancy Weight lbs Domestic Partner Domestic Partner Phone Father Name Laundry Helper Status 04/07/20 20 1 CLOSED Fetus Data First Name Last Name Admitted to NICU Weight (g) Sex Living Outcome Pediatric Complications Fetus ID Race Codes Race Delivery Type 1304.07 7 M Full Term 2434 Vaginal Delivery Kirk Calculation Initial Kirk Date Initial Exam Date Initial Exam Provider Initial Ultrasound Date Last Menstrual Period Date Ultra Sound Weeks Gestation 0 Eighteen To Twenty Week Kirk Update Ultra Sound Date Fundal Height At Umbil Quickening Date Ultra Sound Latest Weeks Gestation Final Kirk Confirmed By Final Kirk Confirmed Date Final Kirk Date Ultra Sound Latest Days Gestation 0 0 Menstrual History Last Menstrual Date Menses Monthly On Bcp Conception Prior Menses Frequency Hcg Plus Date Menarche Onset Age Delivery Information Delivery Date Delivery Type Labor Anesthesia Weeks Gestation Incision Type Labor Labor Length Hrs Delivered By Post Complications Tubal Sterilization Discharge Date Comments 1 28 Discharge Information Feeding Method Contraceptive Method Maternal HG B and HCT Levels
--- OUTSIDE RECORDS SUMMARY | 2025-03-18 12:19 | XMS_ITS | Clinical Summary ---
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 Gender Identity Not on file Sexual Orientation Not on file Plan of Treatment Health Maintenance Due Date Last Done Comments Hepatitis C Virus (HCV) Screening 1975 TdaP Immunization 1975 Hepatitis B Immunization (1 of 3 - 19+ 3-dose series) 1994 Pap Smear 1996 Cervical Cancer Screening (CCS) 2005 HPV/Cotest 2005 Discussion re Starting/Frequency of Mammograms 2015 Colonoscopy 2020 Colorectal Cancer Screening 2020 Influenza Immunization (#1) 2024 12/0 04/2020, 09/01/2019, 10/14/2018, Additional history exists SARS-COV-2 Immunization ( season) 2024 Respiratory Syncytial Virus (RSV) Immunization (Adult) (1 - 1-dose 75+ series) 2050 Meningococcal Immunization (ACWY) Aged Out No longer eligible based on patient's age to complete this topic Pneumococcal Immunization Combined Aged Out No longer eligible based on patient's age to complete this topic Rotavirus Immunization Aged Out No lo nger eligible based on patient's age to complete this topic
[2025-03-18 12:32] VITALS: BP 107/79; PULSE 86; RESP 18; TEMP 36.6; O2SAT 98
[2025-03-18 12:54] LABS: Basophils Percent Auto 0.2 % (0.2-1.2); Eosinophils Percent Auto 0.1 % (0-4.4); Hematocrit 41.5 % (37.0-47.0); Hemoglobin 13.8 g/dL (12.0-15.0); Immature Granulocyte Absolute 0.03 K/mm3 (0.00-0.031); Immature Granulocyte Percent A 0.3 % (0-0.5); Lymphocytes Absolute Auto 2.23 K/mm3 (0.9-3.2); Lymphocytes Percent Auto 21.5 % (18.3-44.2); Mean Corpuscular HGB Conc 33.3 g/dl (32-36); Mean Corpuscular Hemoglobin 33.5 pg (26-34); Mean Corpuscular Volume 100.7 fl (80-100); Mean Platelet Volume 9.6 fl (7.4-10.4); Monocytes Absolute Auto 0.6 K/mm3 (0.1-0.6); Monocytes Percent Auto 5.5 % (2.6-8.5); Neutrophils Absolute Auto 7.5 K/mm3 (1.3-6.7); Neutrophils Percent Auto 72.4 % (45.5-73.1); Platelet Count Result 274 k/mm3 (150-375); Red Blood Count 4.12 M/mm3 (4.2-5.4); Red Cell Distribution Width 13.9 % (11.5-14.5); White Blood Count 10.4 K/mm3 (4.5-10.0)
[2025-03-18 13:01] LABS: BEDSIDEPREGUCG Negative (Negative)
[2025-03-18 13:06] LABS: Alanine Aminotransferase 18 U/L (6-35); Albumin Level 4.7 g/dL (3.5-5.1); Alkaline Phosphatase 90 U/L (38-126); Anion Gap 8 mmol/L (4-12); Aspartate Amino Transferase 30 U/L (14-36); Bilirubin,Total 0.9 mg/dL (0.2-1.3); Blood Urea Nitrogen 8 mg/dL (7-17); Calcium 9.2 mg/dL (8.4-10.2); Carbon Dioxide 25 mmol/L (22-30); Chloride 103 mmol/L (98-107); Estimated CRCL calculation 67 ml/min; Estimated Glomerular Filt Rate > 60; Glucose 104 mg/dL (65-110); Lipase 41 U/L (23-300); Sodium 136 mmol/L (137-145)
[2025-03-18 13:12] LABS: Add Urine Microscopic? YES; Appearance Urine Clear (Clear); Bacteria Urine None Seen /hpf; Bilirubin Urine Negative (Negative); Blood Urine Trace (Negative); Color Urine Yellow (Yellow); Glucose Urine UA Negative (Negative); Ketones Urine Negative (Negative); Leukocyte Esterase Ur Negative LEU/UL (Negative); Nitrate Urine Negative (Negative); Non Pathogenic Casts 0-2; Protein Urine Negative (Negative); RBC Urine 0-2 /hpf (0-2); Squamous Epithelial Cell Urine Few /hpf (Few); Urobilinogen Urine 0.2 mg/dL (<2.0); WBC Urine 0-5 /hpf (0-3); pH Urine 5.5 (5.0-9.0)
--- OUTSIDE RECORDS SUMMARY | 2025-03-18 14:15 | XMS_ITS | Clinical Summary ---
Author Organization [facility] Address [address] [id number] Care Team Providers Care Liquified Natural Gas Specialist Name Role Phone Fernando Choi MD Primary Care Provider [phone] Allergies Active Allergy Reactions Criticality Noted Date [...] on file Legal Sex Female 11:22 PM GUNNER'S MATE Gender Identity Not on file Sexual Orientation Not on file Obstetrics History Last Filed Vital Signs Vital Sign Reading Time Taken Comments Blood Pressure 104/70 09/26/2019 3:08 PM GUNNER'S MATE Pulse 70 09/26/2019 3:08 PM GUNNER'S MATE Temperature - - Respiratory Rate - - Oxygen Saturation 97% 09/26/2019 3:08 PM GUNNER'S MATE Inhaled Oxygen Concentration - - Weight 53.2 kg (117 lb 4.8 oz) 09/26/2019 3:08 P M GUNNER'S MATE Height 163.8 cm (5' 4.5) 09/26/2019 3:08 PM GUNNER'S MATE Body Mass Index 19.82 09/26/2019 3:08 PM GUNNER'S MATE Plan of Treatment Not on file Insurance ANTHEM ACCESS CHOICE ANTHEM ACCESS ANTHEM ACCESS CHOICE ANTHEM ACCESS Care Teams Liquified Natural Gas Specialist Relationship Specialty Start Date End Date Fernando Choi MD [address] [place] [id number] PCP - General 10/06/17
--- OUTSIDE RECORDS SUMMARY | 2025-03-18 14:15 | XMS_ITS | Referral Summary ---
Author Organization [facility] Address [address] [place] [id number] Care Team Providers Care Electrical Maintenance Mechanic Name Role Phone Fernando Choi MD Primary Care Provider [phone] Allergies Active Allergy Reactions Criticality Noted Date [...] on file Legal Sex Female 11:22 PM TAX ECONOMIST Gender Identity Not on file Sexual Orientation Not on file Last Filed Vital Signs Vital Sign Reading Time Taken Comments Blood Pressure 104/70 09/26/2019 3:08 PM TAX ECONOMIST Pulse 70 09/26/2019 3:08 PM TAX ECONOMIST Temperature - - Respiratory Rate - - Oxygen Saturation 97% 09/26/2019 3:08 PM TAX ECONOMIST Inhaled Oxygen Concentration - - Weight 53.2 kg (117 lb 4.8 oz) 09/26/2019 3:08 P M TAX ECONOMIST Height 163.8 cm (5' 4.5) 09/26/2019 3:08 PM TAX ECONOMIST Body Mass Index 19.82 09/26/2019 3:08 PM TAX ECONOMIST Plan of Treatment Not on file Insurance ANTHEM ACCESS CHOICE ANTHEM ACCESS ANTHEM ACCESS CHOICE ANTHEM ACCESS Care Teams Electrical Maintenance Mechanic Relationship Specialty Start Date End Date Fernando Choi MD [address] [place] [id number] PCP - General 10/06/17
--- OUTSIDE RECORDS SUMMARY | 2025-03-18 14:15 | XMS_ITS | Clinical Summary ---
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
--- NOTE | 2025-03-18 14:20 | ED.ABDPAIN ---
HPI - Abdominal Pain General Chief Complaint: Abdominal Pain Stated Complaint: abd pain since Tuesday-sent by Time Seen by Provider: 03/18/25 12:46 History of Present Illness HPI narrative: Patient is a 50-year-old female who presents ER with abdominal pain. Diffuse. Cramping. Ongoing over last 3 days. Began initially in lower abdomen. She thought she was constipated. She has had bowel movements. She did take some laxative and now has some diarrhea. No fevers or chills. No vomiting. No dysuria. Denies risk for STI including new vaginal discharge or sexual partner. Related Data Allergies Allergy/AdvReac Type Severity Reaction Status Date / Time latex Allergy Intermediate Blister Verified 03/18/25 12:48 Sulfa (Sulfonamide Allergy Intermediate Swelling Verified 03/18/25 12:48 Antibiotics) metronidazole AdvReac Intermediate Vomiting Verified 03/18/25 12:48 Review of Systems Review of Systems: All systems reviewed & are unremarkable except as noted in HPI and below Constitutional: Constitutional: Reports no additional constitutional complaints Cardiovascular: Cardiovascular: Reports no additional cardiovascular complaints Respiratory: Respiratory: Reports no additional respiratory complaints Gastrointestinal: Gastrointestinal: Reports no additional gastrointestinal complaints Genitourinary: Genitourinary: Reports no additional female genitourinary complaints FOR[facility]LY [facility], [facility] Past Medical History Medical History Nicotine dependence, cigarettes, uncomplicated Pathologic high serum prolactin Gonadotroph adenoma Back pain Hypothyroid Surgical History Surgical History History of tubal ligation 10/2023 History of endometrial ablation 10/2023 Social History Social History Smoking packs per day: 1 Smoking cigarettes per day: 20.0 Years smoked: 30 Smoking pack-years: 30.00 Smoking status: Current every day smoker Tobacco type: cigarettes Second hand tobacco smoke exposure: Yes Alcohol intake: never Substance use: current Substance use type: marijuana Other substance usage details: Multiple times daily marijuana Lack of Transportation: No Lack of Food: Never True Current Housing: I Have Housing Concerned About Future Housing: No Difficulty Paying Gas/Electric Bills: No Difficulty Paying for Meds: No Currently Unemployed: No Difficulty w/ Childcare or Family Care: No Living arrangements: with family Occupation/Education: unemployed Gender identity (if verbalized by the patient): Female Sexual Orientation (if Verbalized by the Patient): Straight or Heterosexual Spiritual care concerns: No Exam Narrative: GENERAL: Well-appearing, well-nourished, and in no acute distress. HEAD: Normocephalic, atraumatic. ENT: Mucous membranes moist. NECK: Supple. CHEST: Clear to auscultation. No respiratory distress. HEART: Regular rate and rhythm. Normal peripheral pulses. ABDOMEN: Soft, mild diffuse tenderness including right upper quadrant bilateral lower quadrants, nondistended. EXTREMITIES: Normal range of motion. No edema. SKIN: Warm, dry, no rash. NEURO: No focal deficits. Alert and oriented x3. PSYCH: Normal mood and affect. Course Vital Signs Vital signs: Vital Signs Temperature 98 F 03/18/25 12:32 Pulse Rate 86 03/18/25 12:32 Respiratory Rate 18 03/18/25 12:32 Blood Pressure 107/79 03/18/25 12:32 Pulse Oximetry 98 03/18/25 12:32 Oxygen Delivery Room Air 03/18/25 12:32 Temperature 98 F 03/18/25 12:32 Pulse Rate 86 03/18/25 12:32 Respiratory Rate 18 03/18/25 12:32 Blood Pressure 107/79 03/18/25 12:32 Pulse Oximetry 98 03/18/25 12:32 Oxygen Delivery Room Air 03/18/25 12:32 MDM - Abdominal Pain Lab Data 03/18/25 12:47 03/18/25 12:47 Labs: Lab Results 03/18/25 03/18/25 03/18/25 Range/Units 12:47 12:59 13:00 WBC 10.4 H (4.5-10.0) K/mm3 RBC 4.12 L (4.2-5.4) M/mm3 Hgb 13.8 (12.0-15.0) g/dL Hct 41.5 (37.0-47.0) % MCV 100.7 H (80-100) fl MCH 33.5 (26-34) pg MCHC 33.3 (32-36) g/dl RDW 13.9 (11.5-14.5) % Plt Count 274 (150-375) k/mm3 MPV 9.6 (7.4-10.4) fl Immature Gran % (Auto) 0.3 (0-0.5) % Neut % (Auto) 72.4 (45.5-73.1) % Lymph % (Auto) 21.5 (18.3-44.2) % [facility] % (Auto) 5.5 (2.6-8.5) % Eos % (Auto) 0.1 (0-4.4) % Baso % (Auto) 0.2 (0.2-1.2) % Lymph # (Auto) 2.23 (0.9-3.2) K/mm3 [facility] # (Auto) 0.6 (0.1-0.6) K/mm3 Eos # (Auto) 0.0 (0-0.3) K/mm3 Baso # (Auto) 0.0 (0.0-0.1) K/mm3 Abs Immat Gran (auto) 0.03 (0.00-0.031) K/mm3 Absolute Neuts (auto) 7.5 H (1.3-6.7) K/mm3 Absolute Nucleated RBC 0.000 (0.0-0.012) K/mm3 Nucleated RBC % 0.0 (0.0-0.2) % Sodium 136 L (137-145) mmol/L Potassium 4.0 (3.4-5.0) mmol/L Chloride 103 (98-107) mmol/L Carbon Dioxide 25 (22-30) mmol/L Anion Gap 8 (4-12) mmol/L BUN 8 (7-17) mg/dL Creatinine 0.69 L (0.7-1.0) mg/dL Estim Creat Clear Calc 67 ml/min Estimated GFR > 60 (59 - ) Glucose 104 (65-110) mg/dL Lactic Acid 1.0 (0.7-2.0) mmol/L Calcium 9.2 (8.4-10.2) mg/dL Total Bilirubin 0.9 (0.2-1.3) mg/dL AST 30 (14-36) U/L ALT 18 (6-35) U/L Alkaline Phosphatase 90 (38-126) U/L Total Protein 8.0 (6.3-8.2) g/dL Albumin 4.7 (3.5-5.1) g/dL Lipase 41 (23-300) U/L Urine Color Yellow (Yellow) Urine Appearance Clear (Clear) Urine pH 5.5 (5.0-9.0) Ur Specific [place] 1.010 (1.001-1.035) Urine Protein Negative (Negative) mg/dL Urine Glucose (UA) Negative (Negative) mg/dL Urine Ketones Negative (Negative) mg/dL Ur Blood (Man) Trace (Negative) Urine Nitrate Negative (Negative) Urine Bilirubin Negative (Negative) Urine Urobilinogen 0.2 (<2.0) mg/dL Leukocyte Esterase Rfl Negative (Negative) EMILY/UL Urine RBC 0-2 (0-2) /hpf Urine WBC 0-5 (0-3) /hpf Ur Squamous Epith Cells Few (Few) /hpf Urine Bacteria None seen /hpf Urine Casts 0-2 POC Urine HCG, Qual Negative (Negative) Imaging Data Radiologist's impression: ITS Impressions Abdomen/Pelvis CT 03/18/25 13:34 IMPRESSION: 1. Fluid throughout the colon consistent with nonspecific diarrhea. Correlate clinically for gastroenteritis. Discharge Plan Discharge Clinical Impression: Abdominal cramping Patient Disposition: Home Condition: Stable Instructions: Abdominal Pain (ED) Additional Instructions: Return to the emergency department if you develop severe abdominal pain, severe nausea and vomiting to the point where you are unable to keep down fluids, if you develop chest pain or difficulty breathing, blood in your stool, dizziness or fainting, or if you develop any other new or concerning symptoms as these could be signs of more serious medical illness. Try to stay well hydrated. Patient Language: Georgian Prescriptions: New simethicone 125 mg capsule 125 mg PO QID Qty: 20 0RF Rx Instructions: administer after meals and at bedtime dicyclomine 20 mg tablet 20 mg PO QID Qty: 20 0RF No Action levothyroxine 112 mcg tablet 112 mcg PO DAILY Qty: 90 1RF Follow-up/Referrals: Fernando Choi MD [Primary Care Provider] - 1 Week
[2025-03-18 14:28] VITALS: BP 128/84; PULSE 86; RESP 16; O2SAT 99
== END 2025-03-18 14:29 | disposition home or self-care (01) ==
PROVIDERS: Family Medicine; Physician Assistant; Emergency Provider Emergency Medicine; PCP Family Medicine
DX: R10.9 Unspecified abdominal pain (principal); F17.210 Nicotine dependence, cigarettes, uncomplicated; E03.9 Hypothyroidism, unspecified
CPT/HCPCS: 36415; 74177; 80053; 81001; 81025; 83605; 83690; 85025; 99284; Q9967